=== PATIENT | female | born 1950 | race Caucasian/White ===

== ENCOUNTER 2022-04-28 13:42 | Outpatient (REF) | payer OTHER, SELFPAY ==
[2022-04-28 14:28] LABS: Basophils Absolute Auto 0.07 K/uL (0.00-0.30); Basophils Percent Auto 0.8 % (0.0-3.0); Eosinophils Absolute Auto 0.16 K/uL (0.00-0.50); Eosinophils Percent Auto 1.9 % (0.0-7.0); Hematocrit 41.7 % (33.0-51.0); Hemoglobin* 13.8 gm/dL (12.0-16.0); Immature Granulocytes Abs Auto 0.03 K/uL (0.00-0.30); Lymphocytes Percent Auto 18.1 % (20-44); Mean Corpuscular HGB Conc 33 gm/dL (32-36); Mean Corpuscular Hemoglobin 36 pg (26-34); Mean Corpuscular Volume 108 fL (80-100); Monocytes Percent Auto 8.5 % (0.0-11.0); Neutrophils Absolute Auto 5.94 K/uL (1.7-7.0); Neutrophils Percent Auto 70.3 % (42.0-72.0); Platelet Count* 449 K/uL (140-440); RDW Coefficient of Variation % 14.4 % (11.5-15.5); Red Blood Count 3.87 m/uL (4.00-5.20); White Blood Count* 8.45 K/uL (4.50-11.00)
[2022-04-29 05:42] LABS: Slide Review Reflex No
== END 2022-04-28 13:43 | disposition home or self-care (01) ==
LOC: NPINS 13:42
PROVIDERS: PCP Family Medicine
DX: D47.3 Essential (hemorrhagic) thrombocythemia (principal)
CPT/HCPCS: 85025

== ENCOUNTER 2022-06-09 10:23 | Outpatient (CLI) | payer OTHER, SELFPAY ==
[2022-06-09 14:49] LABS: Albumin* 4.8 g/dL (3.3-5.0); Chloride* 96 mmol/L (96-114); Sodium* 131 mmol/L (135-149)
[2022-06-09 14:50] LABS: Potassium* 4.6 mmol/L (3.6-5.1)
[2022-06-09 14:51] LABS: Cholesterol* 168 mg/dL (90-199)
[2022-06-09 14:52] LABS: Alanine Aminotransferase* 40 U/L (4-35); Alkaline Phosphatase* 80 U/L (40-150); Aspartate Amino Transferase* 50 U/L (12-35); Bilirubin Total* 0.6 mg/dL (0.1-1.5); Blood Urea Nitrogen* 18 mg/dL (7-30); Calcium* 9.4 mg/dL (8.4-10.6); Carbon Dioxide* 26 mmol/L (20-32); Creatinine* 0.6 mg/dL (0.5-1.5); Estimated Glomerular Filt Rate 95 ml/min; Glucose* 92 mg/dL (60-115); Total Protein* 7.3 g/dL (6.0-8.3); Triglycerides* 63 mg/dL (40-149)
[2022-06-09 14:53] LABS: HDL Cholesterol* 88 mg/dL (>=50); LDL Cholesterol Calculated 67 mg/dL (<100)
== END 2022-06-09 10:24 | disposition home or self-care (01) ==
PROVIDERS: PCP Family Medicine; Visit Provider Family Medicine
DX: Z00.00 Encounter for general adult medical examination without abnormal findings (principal); I10 Essential (primary) hypertension; E78.00 Pure hypercholesterolemia, unspecified
CPT/HCPCS: 80053; 80061

== ENCOUNTER 2022-06-25 10:36 | Outpatient (CLI) | payer OTHER, SELFPAY ==
--- NOTE | 2022-06-25 10:45 | CRLHL7_ITS ---
For Patients: As a result of the Cures Act, medical imaging exams and procedure reports are released immediately into your electronic medical record. You may view this report before your referring provider. If you have questions, please contact your health care provider. DIGITAL DIAGNOSTIC BILATERAL MAMMOGRAM USING TOMOSYNTHESIS AND COMPUTER-AIDED DETECTION CLINICAL HISTORY: LEFT breast density. COMPARISON: 05/29/2021, 09/06/2017, 07/28/2016. TECHNIQUE: Digital BILATERAL mammogram in four projections. Tomosynthesis and CAD utilized. BREAST COMPOSITION: The breasts are heterogeneously dense, which may obscure small masses. FINDINGS: Stable BILATERAL breast parenchyma with benign calcifications and stable benign nodular density LEFT breast. No architectural distortion or suspicious findings. No adenopathy. IMPRESSION: Normal BILATERAL mammograms unchanged from prior exams. No evidence of malignancy. RECOMMENDATIONS: Annual BILATERAL screening mammography. BI-RADS Category 2: Benign Results and recommendations discussed with the patient. A lay language report of this examination will be provided to the patient. Dictated by Emir Alvarez MD @ 06/25/2022 12:27:03 PM jj/Dictated by: Emir Alvarez MD @ 06/25/2022 12:27:00 PM (Electronically Signed)
--- NOTE | 2022-06-25 14:30 | CRLHL7_ITS ---
For Patients: As a result of the Century Cures Act, medical imaging exams and procedure reports are released immediately into your electronic medical record. You may view this report before your referring provider. If you have questions, please contact your health care provider. DXA BONE MINERAL DENSITY STUDY Reason for exam: Abnormal DEXA 2020 Current height (in): 66.0 Weight (lb): 112.0 Menopause age: 53 Ethnicity: White 1. Have you had a previous hip or vertebral fracture? No. 2. Have you had any fractures during your adult life which did not result from significant trauma (e.g., auto accident)? No. 3. Did either of your parents have a hip fracture? No. 4. Do you smoke? No. 5. Have you ever taken Glucocorticoids? No. 6. Do you have rheumatoid arthritis? No. 7. Do you have secondary osteoporosis? No. 8. Do you drink 3 or more alcoholic drinks per day? No. 9. Are you being treated for osteoporosis? No. 10. Have you ever taken any of the following medications: Actonel, Evista, Fosamax, Miacalcin, Reclast, Boniva, Forteo, HRT (i.e. estrogen/hormone therapy), Protelos, Prolia, Vitamin D, Calcium, other ??? please specify. ANSWER: Yes, calcium. 11. Do you have any of the following medical conditions: Anorexia or bulimia, asthma or emphysema, end stage renal disease, hyperparathyroidism, any seizure disorders, cancer, inflammatory bowel diseases, hysterectomy, other ??? please specify. ANSWER: Yes, hysterectomy. 12. What was your maximum height (inches)? 66 13. Do you perform weight bearing exercise regularly? Yes. 14. Do you regularly consume dairy products? Yes. 15. Do you drink caffeinated beverages? Yes. 16. At what age did your period start? 15 17. Are you premenopausal? No. 18. How many full term pregnancies have you had? 1 19. Have you ever missed your period for more than 6 months in a row (not including or menopause)? No. TECHNIQUE: Bone mineral density study was performed using the [employer]. FINDINGS: The results of the study expressed as bone mineral density (BMD) are as follows: Lumbar spine L1 to L4: BMD: 0.734 g/cm2. T-score: -2.8. Z-score: -0.5. Neck Left: BMD: 0.563 g/cm2. T-score: -2.6. Z-score: -0.6. Right: BMD: 0.590 g/cm2. T-score: -2.3. Z-score: -0.3. Total Left: BMD: 0.543 g/cm2. T-score: -3.3. Z-score: -1.6. Right: BMD: 0.588 g/cm2. T-score: -2.9. Z-score: -1.2. IMPRESSION: Osteoporosis. *Comparison exams done prior to 12/2019 were performed on different unit, [email or web address]. COMPARISON: Compared with scan of 05/29/2021, the bone mineral density has decreased by 0.7 percent at the hip. Emir Alvarez M.D. Diagnostic Radiologist [email or web address] DSM/pura PT/Dictated by: Emir Alvarez MD @ 06/26/2022 12:23:00 PM (Electronically Signed)
== END 2022-06-25 10:37 | disposition home or self-care (01) ==
LOC: MAMMO 10:38
PROVIDERS: PCP Family Medicine; Visit Provider Family Medicine
DX: N63.20 Unspecified lump in the left breast, unspecified quadrant (principal); R92.8 Other abnormal and inconclusive findings on diagnostic imaging of breast; M85.80 Other specified disorders of bone density and structure, unspecified site; M81.0 Age-related osteoporosis without current pathological fracture
CPT/HCPCS: 77066; 77080; G0279

== ENCOUNTER 2022-08-18 22:04 | Outpatient (REF) | payer OTHER, SELFPAY ==
[2022-08-19 03:59] LABS: Basophils Absolute Auto 0.12 K/uL (0.00-0.30); Basophils Percent Auto 1.2 % (0.0-3.0); Eosinophils Absolute Auto 0.24 K/uL (0.00-0.50); Eosinophils Percent Auto 2.4 % (0.0-7.0); Hematocrit 44.1 % (33.0-51.0); Hemoglobin* 14.4 gm/dL (12.0-16.0); Immature Granulocytes Abs Auto 0.09 K/uL (0.00-0.30); Immature Granulocytes Pct Auto 0.9 %; Mean Corpuscular HGB Conc 33 gm/dL (32-36); Mean Corpuscular Hemoglobin 35 pg (26-34); Mean Corpuscular Volume 108 fL (80-100); Neutrophils Percent Auto 70.5 % (42.0-72.0); Platelet Count* 507 K/uL (140-440); RDW Coefficient of Variation % 14.2 % (11.5-15.5); Red Blood Count 4.07 m/uL (4.00-5.20); White Blood Count* 9.94 K/uL (4.50-11.00)
[2022-08-19 04:06] LABS: Slide Review Reflex No
== END 2022-08-18 22:05 | disposition home or self-care (01) ==
LOC: LAB 22:04
PROVIDERS: PCP Family Medicine
DX: D47.3 Essential (hemorrhagic) thrombocythemia (principal)
CPT/HCPCS: 36415; 85025

== ENCOUNTER 2022-11-10 13:49 | Outpatient (REF) | payer OTHER, SELFPAY ==
[2022-11-10 14:17] LABS: Basophils Absolute Auto 0.11 K/uL (0.00-0.30); Basophils Percent Auto 1.1 % (0.0-3.0); Eosinophils Absolute Auto 0.19 K/uL (0.00-0.50); Hematocrit 44.6 % (33.0-51.0); Hemoglobin* 14.7 gm/dL (12.0-16.0); Immature Granulocytes Abs Auto 0.05 K/uL (0.00-0.30); Immature Granulocytes Pct Auto 0.5 %; Lymphocytes Percent Auto 13.9 % (20-44); Mean Corpuscular HGB Conc 33 gm/dL (32-36); Mean Corpuscular Hemoglobin 35 pg (26-34); Mean Corpuscular Volume 105 fL (80-100); Monocytes Percent Auto 7.9 % (0.0-11.0); Neutrophils Percent Auto 74.6 % (42.0-72.0); Platelet Count* 442 K/uL (140-440); RDW Coefficient of Variation % 14.5 % (11.5-15.5); Red Blood Count 4.24 m/uL (4.00-5.20); White Blood Count* 9.59 K/uL (4.50-11.00)
[2022-11-10 14:27] LABS: Slide Review Reflex No
== END 2022-11-10 13:50 | disposition home or self-care (01) ==
LOC: NPINS 13:49
PROVIDERS: Internal Medicine; PCP Family Medicine
DX: D47.3 Essential (hemorrhagic) thrombocythemia (principal)
CPT/HCPCS: 85025

== ENCOUNTER 2023-05-17 13:29 | Outpatient (CLI) | payer OTHER, SELFPAY | END 2023-05-17 13:30 | disposition home or self-care (01) | PROVIDERS: PCP Family Medicine; Visit Provider Family Medicine | DX: E78.00 Pure hypercholesterolemia, unspecified (principal); G62.9 Polyneuropathy, unspecified; I10 Essential (primary) hypertension | CPT/HCPCS: 80048; 84443 ==

== ENCOUNTER 2023-05-24 12:34 | Outpatient (CLI) | payer OTHER, SELFPAY ==
--- NOTE | 2023-05-24 13:00 | CRLHL7_ITS ---
For Patients: As a result of the Cures Act, medical imaging exams and procedure reports are released immediately into your electronic medical record. You may view this report before your referring provider. If you have questions, please contact your health care provider. INDICATION: essential hypertension TECHNIQUE: Grayscale, color Doppler and power Doppler ultrasound of the renal arteries performed. COMPARISON: None available FINDINGS: BILATERAL RENAL ARTERY DUPLEX ULTRASOUND ABDOMINAL AORTA: Peak systolic velocity = 57 cm/s. No aortic aneurysm. RIGHT KIDNEY: 10.5 cm in length. There is no hydronephrosis. Peak systolic velocity = 103 cm/second Renal artery to aortic peak systolic velocity ratio = 1.8 Resistive indices: 0.6-0.7 Renal vein = patent LEFT KIDNEY: 12.2 cm in length. There is no hydronephrosis. Simple left renal cyst measures 13 x 10 x 12 millimeters. Additional cyst is present measuring 3.5 x 3.4 x 4.0 cm. Peak systolic velocity = 95 cm/second Renal artery to aortic peak systolic velocity ratio = 1.7 Resistive indices: 0.6 Renal vein = patent IMPRESSION: No evidence of significant renal artery stenosis. Dictated by Emir Alvarez MD @ 05/24/2023 3:02:15 PM (Electronically Signed)
== END 2023-05-24 12:35 | disposition home or self-care (01) ==
PROVIDERS: PCP Family Medicine; Visit Provider Family Medicine
DX: I10 Essential (primary) hypertension (principal); D75.839 Thrombocytosis, unspecified; Z86.2 Personal history of diseases of the blood and blood-forming organs and certain disorders involving the immune mechanism
CPT/HCPCS: 76775; 93975

== ENCOUNTER 2023-06-18 12:30 | Outpatient (CLI) | payer OTHER, SELFPAY | END 2023-06-18 12:31 | disposition home or self-care (01) | LOC: RAD 12:34 | PROVIDERS: PCP Family Medicine; Visit Provider Family Medicine | DX: I10 Essential (primary) hypertension (principal); I51.7 Cardiomegaly; I35.1 Nonrheumatic aortic (valve) insufficiency; I34.0 Nonrheumatic mitral (valve) insufficiency | CPT/HCPCS: 93306 ==

== ENCOUNTER 2023-06-24 11:19 | Outpatient (CLI) | payer OTHER, SELFPAY ==
[2023-06-24 23:24] LABS: Cholesterol* 155 mg/dL (90-199); HDL Cholesterol* 80 mg/dL (>=50); LDL Cholesterol Calculated 54 mg/dL (<100); Triglycerides* 106 mg/dL (40-149)
== END 2023-06-24 11:20 | disposition home or self-care (01) ==
PROVIDERS: PCP Family Medicine; Visit Provider Family Medicine
DX: E78.00 Pure hypercholesterolemia, unspecified (principal); I10 Essential (primary) hypertension
CPT/HCPCS: 80048; 80061

== ENCOUNTER 2023-07-06 11:20 | Outpatient (CLI) | payer OTHER, SELFPAY | END 2023-07-06 11:21 | disposition home or self-care (01) | LOC: NFLDREF 07-08 06:27 | PROVIDERS: PCP Family Medicine; Referring Provider Family Medicine; Visit Provider Family Medicine | DX: E87.1 Hypo-osmolality and hyponatremia (principal) | CPT/HCPCS: 80048 ==

== ENCOUNTER 2023-08-10 14:39 | Outpatient (RCR) | payer OTHER, SELFPAY ==
[2023-04-29 14:25] LABS: Basophils Percent Auto 0.9 % (0.0-3.0); Eosinophils Absolute Auto 0.19 K/uL (0.00-0.50); Eosinophils Percent Auto 1.8 % (0.0-7.0); Hematocrit 41.1 % (33.0-51.0); Hemoglobin* 13.8 gm/dL (12.0-16.0); Immature Granulocytes Abs Auto 0.05 K/uL (0.00-0.30); Immature Granulocytes Pct Auto 0.5 %; Lymphocytes Percent Auto 14.1 % (20-44); Mean Corpuscular HGB Conc 34 gm/dL (32-36); Mean Corpuscular Hemoglobin 36 pg (26-34); Mean Corpuscular Volume 106 fL (80-100); Monocytes Percent Auto 8.3 % (0.0-11.0); Neutrophils Percent Auto 74.4 % (42.0-72.0); Platelet Count* 472 K/uL (140-440); RDW Coefficient of Variation % 14.7 % (11.5-15.5); Red Blood Count 3.87 m/uL (4.00-5.20)
[2023-04-29 14:29] LABS: Slide Review Reflex No
[2023-08-10 15:27] LABS: Basophils Percent Auto 1.9 % (0.0-3.0); Eosinophils Percent Auto 1.8 % (0.0-7.0); Hematocrit 44.9 % (33.0-51.0); Hemoglobin* 14.8 gm/dL (12.0-16.0); Immature Granulocytes Pct Auto 0.8 %; Mean Corpuscular HGB Conc 33 gm/dL (32-36); Mean Corpuscular Hemoglobin 36 pg (26-34); Mean Corpuscular Volume 110 fL (80-100); Monocytes Percent Auto 7.6 % (0.0-11.0); Neutrophils Percent Auto 74.9 % (42.0-72.0); Platelet Count* 517 K/uL (140-440); RDW Coefficient of Variation % 14.3 % (11.5-15.5); White Blood Count* 11.99 K/uL (4.50-11.00)
[2023-08-10 15:28] LABS: Albumin* 4.6 g/dL (3.3-5.0); Chloride* 97 mmol/L (96-114); Potassium* 5.2 mmol/L (3.6-5.1); Sodium* 131 mmol/L (135-149)
[2023-08-10 15:30] LABS: Creatinine* 0.5 mg/dL (0.5-1.5); Estimated Glomerular Filt Rate 98 ml/min
[2023-08-10 15:31] LABS: Alanine Aminotransferase* 53 U/L (4-35); Alkaline Phosphatase* 69 U/L (40-150); Anion Gap 9 mEq/L (7-15); Aspartate Amino Transferase* 56 U/L (12-35); Bilirubin Total* 0.4 mg/dL (0.1-1.5); Blood Urea Nitrogen* 20 mg/dL (7-30); Carbon Dioxide* 25 mmol/L (20-32); Glucose* 112 mg/dL (60-115)
[2023-08-10 15:32] LABS: Calcium* 9.3 mg/dL (8.4-10.6)
[2023-08-10 15:47] LABS: Slide Review Reflex No
== END 2024-07-28 14:35 | disposition home or self-care (01) ==
LOC: LAB 14:39
PROVIDERS: PCP Family Medicine; Visit Provider Internal Medicine
DX: D47.3 Essential (hemorrhagic) thrombocythemia (principal)
CPT/HCPCS: 36415; 80053; 85025

== ENCOUNTER 2023-08-20 12:20 | Outpatient (CLI) | payer OTHER, MEDICARE, SELFPAY ==
--- NOTE | 2023-08-20 13:00 | CRLHL7_ITS ---
For Patients: As a result of the Century Cures Act, medical imaging exams and procedure reports are released immediately into your electronic medical record. You may view this report before your referring provider. If you have questions, please contact your health care provider. BILATERAL SCREENING MAMMOGRAM WITH COMPUTER-AIDED DETECTION AND TOMOSYNTHESIS TECHNIQUE: CC and MLO views were obtained. These mammographic images have been obtained using full-field digital technique. These mammographic images were interpreted with the benefit of computer-aided detection. Breast Tomosynthesis was used in this interpretation. COMPARISON FILM: 06/25/22, 05/29/21, 09/06/17. FINDINGS: The breasts are heterogeneously dense, which may obscure small masses. IMPRESSION: There is no radiographic evidence for malignancy. ASSESSMENT: BI-RADS Category 1: Negative RECOMMENDATION: Routine screening mammogram in 1 year. A lay language report of this examination will be provided to the patient. Emir Alvarez M.D. Diagnostic Radiologist [email or web address] SP/Dictated by: Emir Alvarez MD @ 08/23/2023 10:12:00 AM (Electronically Signed)
== END 2023-08-20 12:21 | disposition home or self-care (01) ==
LOC: MAMMO 12:25
PROVIDERS: PCP Family Medicine; Visit Provider Family Medicine
DX: Z12.31 Encounter for screening mammogram for malignant neoplasm of breast (principal); R92.2 Inconclusive mammogram
CPT/HCPCS: 77063; 77067

== ENCOUNTER 2023-09-28 10:28 | Outpatient (CLI) | payer OTHER, MEDICARE, SELFPAY | END 2023-09-28 10:29 | disposition home or self-care (01) | LOC: NFLDREF 10-12 10:24 | PROVIDERS: PCP Family Medicine; Referring Provider Family Medicine; Visit Provider Family Medicine | DX: E78.00 Pure hypercholesterolemia, unspecified (principal); I10 Essential (primary) hypertension | CPT/HCPCS: 80048 ==

== ENCOUNTER 2024-03-09 13:54 | Outpatient (REF) | payer OTHER, SELFPAY ==
[2024-03-09 15:34] LABS: Basophils Percent Auto 1.1 % (0.0-3.0); Eosinophils Percent Auto 1.6 % (0.0-7.0); Hematocrit 43.7 % (33.0-51.0); Hemoglobin* 13.5 gm/dL (12.0-16.0); Immature Granulocytes Pct Auto 0.5 %; Lymphocytes Percent Auto 12.2 % (20-44); Mean Corpuscular HGB Conc 31 gm/dL (32-36); Mean Corpuscular Hemoglobin 30 pg (26-34); Mean Corpuscular Volume 97 fL (80-100); Monocytes Percent Auto 6.1 % (0.0-11.0); Neutrophils Percent Auto 78.5 % (42.0-72.0); Platelet Count* 429 K/uL (140-440); RDW Coefficient of Variation % 14.5 % (11.5-15.5); Red Blood Count 4.49 m/uL (4.00-5.20); White Blood Count* 14.23 K/uL (4.50-11.00)
[2024-03-09 15:46] LABS: Slide Review Reflex No
== END 2024-03-09 13:55 | disposition home or self-care (01) ==
LOC: NPINS 13:54
PROVIDERS: PCP Family Medicine; Visit Provider Internal Medicine
DX: D47.3 Essential (hemorrhagic) thrombocythemia (principal)
CPT/HCPCS: 85025

== ENCOUNTER 2024-05-01 17:03 | Outpatient (CLI) | payer OTHER, SELFPAY | END 2024-05-01 17:04 | disposition home or self-care (01) | LOC: LKVREF 17:04 | PROVIDERS: PCP Family Medicine; Visit Provider Family Medicine | DX: E87.1 Hypo-osmolality and hyponatremia (principal); I10 Essential (primary) hypertension | CPT/HCPCS: 80048 ==

== ENCOUNTER 2024-05-25 11:12 | Outpatient (CLI) | payer OTHER, SELFPAY | END 2024-05-25 11:13 | disposition home or self-care (01) | PROVIDERS: PCP Family Medicine; Visit Provider Family Medicine | DX: E78.00 Pure hypercholesterolemia, unspecified (principal); I10 Essential (primary) hypertension | CPT/HCPCS: 80053; 80061 ==

== ENCOUNTER 2024-05-29 13:30 | Outpatient (CLI) | payer OTHER, SELFPAY | END 2024-05-29 13:31 | disposition home or self-care (01) | LOC: NFLDREF 06-01 09:04 | PROVIDERS: PCP Family Medicine; Referring Provider Family Medicine; Visit Provider Family Medicine | DX: Z00.00 Encounter for general adult medical examination without abnormal findings (principal); R35.0 Frequency of micturition; E11.9 Type 2 diabetes mellitus without complications; E87.1 Hypo-osmolality and hyponatremia; I10 Essential (primary) hypertension | CPT/HCPCS: 82043; 82570 ==

== ENCOUNTER 2024-07-27 14:59 | Outpatient (REF) | payer OTHER, SELFPAY ==
[2024-07-27 17:11] LABS: Eosinophils Percent Auto 1.6 % (0.0-7.0); Hematocrit 44.4 % (33.0-51.0); Hemoglobin* 13.7 gm/dL (12.0-16.0); Immature Granulocytes Pct Auto 0.5 %; Lymphocytes Percent Auto 10.4 % (20-44); Mean Corpuscular HGB Conc 31 gm/dL (32-36); Mean Corpuscular Hemoglobin 29 pg (26-34); Mean Corpuscular Volume 93 fL (80-100); Monocytes Percent Auto 5.3 % (0.0-11.0); Neutrophils Percent Auto 81.2 % (42.0-72.0); Platelet Count* 386 K/uL (140-440); RDW Coefficient of Variation % 16.8 % (11.5-15.5); Red Blood Count 4.77 m/uL (4.00-5.20); White Blood Count* 13.64 K/uL (4.50-11.00)
[2024-07-27 17:16] LABS: Slide Review Reflex No
== END 2024-07-27 15:00 | disposition home or self-care (01) ==
LOC: NPINS 14:59
PROVIDERS: PCP Family Medicine; Visit Provider Internal Medicine
DX: D69.3 Immune thrombocytopenic purpura (principal)
CPT/HCPCS: 85025

== ENCOUNTER 2024-08-23 13:38 | Outpatient (CLI) | payer OTHER, SELFPAY ==
--- NOTE | 2024-08-23 14:00 | CRLHL7_ITS ---
For Patients: As a result of the Cures Act, medical imaging exams and procedure reports are released immediately into your electronic medical record. You may view this report before your referring provider. If you have questions, please contact your health care provider. BILATERAL SCREENING MAMMOGRAM WITH COMPUTER-AIDED DETECTION AND TOMOSYNTHESIS TECHNIQUE: CC and MLO views were obtained. These mammographic images have been obtained using full-field digital technique. These mammographic images were interpreted with the benefit of computer-aided detection. Breast Tomosynthesis was used in this interpretation. COMPARISON FILM: 08/20/23, 06/25/22, 06/04/21. FINDINGS: The breasts are extremely dense, which lowers the sensitivity of mammography IMPRESSION: There is no radiographic evidence for malignancy. ASSESSMENT: BI-RADS Category 1: Negative RECOMMENDATION: Routine screening mammogram in 1 year. A lay language report of this examination will be provided to the patient. Emir Alvarez M.D. Diagnostic Radiologist [email or web address] ARIANNA/[email or web address] / bM/Dictated by: Emir Alvarez MD @ 08/24/2024 10:37:00 AM (Electronically Signed)
== END 2024-08-23 13:39 | disposition home or self-care (01) ==
LOC: MAMMO 13:39
PROVIDERS: PCP Family Medicine; Visit Provider Family Medicine
DX: Z12.31 Encounter for screening mammogram for malignant neoplasm of breast (principal); R92.333 Mammographic heterogeneous density, bilateral breasts
CPT/HCPCS: 77063; 77067

== ENCOUNTER 2024-08-29 09:58 | Outpatient (CLI) | payer OTHER, SELFPAY ==
[2024-08-29 13:24] LABS: Basophils Percent Auto 0.8 % (0.0-3.0); Eosinophils Percent Auto 1.6 % (0.0-7.0); Hematocrit 43.7 % (33.0-51.0); Hemoglobin* 13.8 gm/dL (12.0-16.0); Immature Granulocytes Pct Auto 0.5 %; Lymphocytes Percent Auto 11.2 % (20-44); Mean Corpuscular HGB Conc 32 gm/dL (32-36); Mean Corpuscular Hemoglobin 31 pg (26-34); Mean Corpuscular Volume 97 fL (80-100); Monocytes Percent Auto 5.3 % (0.0-11.0); Neutrophils Percent Auto 80.6 % (42.0-72.0); Platelet Count* 336 K/uL (140-440); RDW Coefficient of Variation % 18.8 % (11.5-15.5); Red Blood Count 4.53 m/uL (4.00-5.20); White Blood Count* 12.65 K/uL (4.50-11.00)
[2024-08-29 13:27] LABS: Slide Review Reflex No
== END 2024-08-29 09:59 | disposition home or self-care (01) ==
LOC: NPINS 10:00
PROVIDERS: PCP Family Medicine; Visit Provider Internal Medicine
DX: D47.3 Essential (hemorrhagic) thrombocythemia (principal)
CPT/HCPCS: 85025

== ENCOUNTER 2024-09-07 13:05 | Outpatient (CLI) | payer OTHER, SELFPAY | END 2024-09-07 13:06 | disposition home or self-care (01) | LOC: RAD 13:05 | PROVIDERS: PCP Family Medicine; Visit Provider Family Medicine | DX: M81.0 Age-related osteoporosis without current pathological fracture (principal) | CPT/HCPCS: 77080 ==

== ENCOUNTER 2024-11-23 09:17 | Outpatient (CLI) | payer OTHER, SELFPAY ==
[2024-11-23 13:47] LABS: Basophils Percent Auto 0.9 % (0.0-3.0); Eosinophils Percent Auto 1.5 % (0.0-7.0); Hematocrit 43.2 % (33.0-51.0); Immature Granulocytes Pct Auto 0.5 %; Lymphocytes Percent Auto 12.6 % (20-44); Mean Corpuscular HGB Conc 32 gm/dL (32-36); Mean Corpuscular Hemoglobin 34 pg (26-34); Mean Corpuscular Volume 106 fL (80-100); Monocytes Percent Auto 4.5 % (0.0-11.0); Platelet Count* 361 K/uL (140-440); RDW Coefficient of Variation % 16.8 % (11.5-15.5); Red Blood Count 4.09 m/uL (4.00-5.20); White Blood Count* 11.05 K/uL (4.50-11.00)
[2024-11-23 13:52] LABS: Slide Review Reflex No
== END 2024-11-23 09:18 | disposition home or self-care (01) ==
LOC: NPINS 09:17
PROVIDERS: PCP Family Medicine; Visit Provider Internal Medicine
DX: D45 Polycythemia vera (principal)
CPT/HCPCS: 85025

== ENCOUNTER 2024-11-23 09:18 | Outpatient (CLI) | payer OTHER, SELFPAY ==
[2024-11-23 13:49] LABS: Chloride* 92 mmol/L (96-114); Potassium* 4.7 mmol/L (3.6-5.1); Sodium* 128 mmol/L (135-149)
[2024-11-23 13:52] LABS: Blood Urea Nitrogen* 20 mg/dL (7-30); Creatinine* 0.5 mg/dL (0.5-1.5); Estimated Glomerular Filt Rate 98 ml/min
[2024-11-23 13:53] LABS: Calcium* 9.5 mg/dL (8.4-10.6); Carbon Dioxide* 22 mmol/L (20-32); Glucose* 85 mg/dL (60-115)
[2024-11-23 14:02] LABS: Anion Gap 14 mEq/L (7-15)
== END 2024-11-23 09:19 | disposition home or self-care (01) ==
LOC: NPINS 09:18
PROVIDERS: PCP Family Medicine; Visit Provider Internal Medicine Nephrology
DX: E87.1 Hypo-osmolality and hyponatremia (principal)
CPT/HCPCS: 80048

== ENCOUNTER → 2024-12-05 10:51 | Outpatient (RCR) | payer OTHER, SELFPAY ==
[2023-12-01 11:21] LABS: Basophils Percent Auto 0.9 % (0.0-3.0); Eosinophils Percent Auto 1.9 % (0.0-7.0); Hematocrit 45.2 % (33.0-51.0); Hemoglobin* 14.8 gm/dL (12.0-16.0); Immature Granulocytes Pct Auto 0.5 %; Lymphocytes Percent Auto 11.8 % (20-44); Mean Corpuscular HGB Conc 33 gm/dL (32-36); Mean Corpuscular Hemoglobin 35 pg (26-34); Mean Corpuscular Volume 107 fL (80-100); Monocytes Percent Auto 6.4 % (0.0-11.0); Neutrophils Percent Auto 78.5 % (42.0-72.0); Platelet Count* 478 K/uL (140-440); RDW Coefficient of Variation % 13.6 % (11.5-15.5); Red Blood Count 4.23 m/uL (4.00-5.20); White Blood Count* 13.38 K/uL (4.50-11.00)
[2023-12-01 11:24] LABS: Slide Review Reflex No
[2023-12-01 11:44] LABS: Albumin* 4.8 g/dL (3.3-5.0); Chloride* 94 mmol/L (96-114); Potassium* 4.2 mmol/L (3.6-5.1); Sodium* 130 mmol/L (135-149)
[2023-12-01 11:46] LABS: Bilirubin Total* 0.4 mg/dL (0.1-1.5); Creatinine* 0.5 mg/dL (0.5-1.5); Estimated Glomerular Filt Rate 98 ml/min
[2023-12-01 11:47] LABS: Alanine Aminotransferase* 42 U/L (4-35); Alkaline Phosphatase* 84 U/L (40-150); Anion Gap 8 mEq/L (7-15); Aspartate Amino Transferase* 52 U/L (12-35); Blood Urea Nitrogen* 21 mg/dL (7-30); Calcium* 9.5 mg/dL (8.4-10.6); Carbon Dioxide* 28 mmol/L (20-32); Glucose* 87 mg/dL (60-115); Lactate Dehydrogenase* 333 U/L (120-246); Total Protein* 7.8 g/dL (6.0-8.3)
[2023-12-01 12:12] LABS: Immature Reticulocyte Fraction 20.3 % (3.0-15.9); Reticulocyte Percent 2.3 % (0.5-2.0)
[2023-12-28 23:31] LABS: Lactate Dehydrogenase* 342 U/L (120-246)
[2023-12-28 23:45] LABS: Basophils Percent Auto 0.8 % (0.0-3.0); Eosinophils Percent Auto 1.9 % (0.0-7.0); Hematocrit 46.7 % (33.0-51.0); Immature Granulocytes Pct Auto 0.9 %; Lymphocytes Percent Auto 9.9 % (20-44); Mean Corpuscular HGB Conc 32 gm/dL (32-36); Mean Corpuscular Hemoglobin 34 pg (26-34); Mean Corpuscular Volume 105 fL (80-100); Neutrophils Percent Auto 80.5 % (42.0-72.0); Platelet Count* 534 K/uL (140-440); RDW Coefficient of Variation % 13.7 % (11.5-15.5); Red Blood Count 4.44 m/uL (4.00-5.20); White Blood Count* 14.92 K/uL (4.50-11.00)
[2023-12-29 00:01] LABS: Slide Review Reflex No
[2024-01-25 13:49] LABS: Basophils Percent Auto 1.3 % (0.0-3.0); Eosinophils Percent Auto 1.6 % (0.0-7.0); Hematocrit 43.2 % (33.0-51.0); Hemoglobin* 13.8 gm/dL (12.0-16.0); Immature Granulocytes Pct Auto 0.5 %; Lymphocytes Percent Auto 11.8 % (20-44); Mean Corpuscular HGB Conc 32 gm/dL (32-36); Mean Corpuscular Hemoglobin 33 pg (26-34); Mean Corpuscular Volume 102 fL (80-100); Monocytes Percent Auto 6.5 % (0.0-11.0); Neutrophils Percent Auto 78.3 % (42.0-72.0); Platelet Count* 480 K/uL (140-440); RDW Coefficient of Variation % 13.8 % (11.5-15.5); Red Blood Count 4.24 m/uL (4.00-5.20); White Blood Count* 15.16 K/uL (4.50-11.00)
[2024-01-25 14:53] LABS: Slide Review Reflex Yes
[2024-01-25 14:57] LABS: Slide Review Acceptable Review (Acceptable)
== END | disposition home or self-care (01) ==
LOC: LAB 12-01 10:32
PROVIDERS: PCP Family Medicine; Visit Provider Internal Medicine
DX: D47.3 Essential (hemorrhagic) thrombocythemia (principal)
CPT/HCPCS: 36415; 80053; 83615; 85025; 85045

== ENCOUNTER 2024-12-07 09:46 | Outpatient (CLI) | payer OTHER, SELFPAY ==
[2024-12-07 14:12] LABS: Appearance Urine Clear (Clear); Bilirubin Urine Negative (Negative); Blood Urine Negative (Negative); Color Urine Yellow (Yellow); Glucose Urine Negative (Negative); Ketones Urine Negative (Negative); Leukocyte Esterase Urine Negative (Negative); Nitrite Urine Negative (Negative); Protein Urine Negative (Negative); Urobilinogen Urine 0.2 (0.2-1.0)
[2024-12-07 14:22] LABS: RBC Urine 0-2 (0-2); WBC Urine 0-2 (0-5)
== END 2024-12-07 09:47 | disposition home or self-care (01) ==
LOC: NPINS 09:47
PROVIDERS: PCP Family Medicine; Visit Provider Internal Medicine Nephrology
DX: E87.1 Hypo-osmolality and hyponatremia (principal); I11.0 Hypertensive heart disease with heart failure; I50.32 Chronic diastolic (congestive) heart failure; D47.3 Essential (hemorrhagic) thrombocythemia
CPT/HCPCS: 80048; 81001

== ENCOUNTER 2025-01-24 10:19 | Outpatient (CLI) | payer OTHER, SELFPAY ==
--- NOTE | 2025-01-24 10:45 | CRLHL7_ITS ---
For Patients: As a result of the Century Cures Act, medical imaging exams and procedure reports are released immediately into your electronic medical record. You may view this report before your referring provider. If you have questions, please contact your health care provider. DIGITAL DIAGNOSTIC BILATERAL MAMMOGRAM USING TOMOSYNTHESIS AND COMPUTER-AIDED DETECTION RIGHT BREAST ULTRASOUND CLINICAL HISTORY: Inconclusive finding on RIGHT breast during PET scan. COMPARISON: 08/23/2024, 08/20/2023, 06/25/2022 mammograms, outside CT PET 12/26/2024 . TECHNIQUE: Digital BILATERAL mammogram in four projections with computer-aided detection. Tomosynthesis was used in this interpretation. Real-time ultrasound imaging of RIGHT breast with imaging documentation. Scanning was performed by both the technologist and the radiologist. BREAST COMPOSITION: The breasts are extremely dense, which lowers the sensitivity of mammography. FINDINGS: 3D CC/MLO BILATERAL mammogram images submitted. Breast parenchyma is extremely dense. Benign calcifications are present bilaterally. No architectural distortion. No suspicious mass. Patient has had prior excisional biopsy in the remote past. No adenopathy. Targeted RIGHT breast ultrasound performed. At 7 o`clock 3 cm from the nipple, there is a solid heterogeneous mass with increased through-transmission measuring 1.5 cm. IMPRESSION: Indeterminate solid mass RIGHT breast 7 o`clock 3 cm from the nipple measuring approximally 1.5 [address]-PET. RECOMMENDATIONS: Ultrasound-guided core needle biopsy. A lay language report of this examination will be provided to the patient. BI-RADS Category 4: Suspicious Dictated by Emir Alvarez MD @ 01/24/2025 11:52:34 AM jj/Dictated by: Emir Alvarez MD @ 01/24/2025 11:52:00 AM (Electronically Signed)
--- NOTE | 2025-01-24 11:15 | CRLHL7_ITS ---
For Patients: As a result of the Cures Act, medical imaging exams and procedure reports are released immediately into your electronic medical record. You may view this report before your referring provider. If you have questions, please contact your health care provider. SEE DIGITAL DIAGNOSTIC BILATERAL MAMMOGRAM PERFORMED SAME DAY CRL:jael elder/Dictated by: Emir Alvarez MD @ 01/24/2025 11:52:00 AM (Electronically Signed)
== END 2025-01-24 10:20 | disposition home or self-care (01) ==
LOC: MAMMO 10:20
PROVIDERS: PCP Family Medicine; Visit Provider Family Medicine
DX: N63.10 Unspecified lump in the right breast, unspecified quadrant (principal); R92.343 Mammographic extreme density, bilateral breasts; R92.8 Other abnormal and inconclusive findings on diagnostic imaging of breast
CPT/HCPCS: 76642; 77066; G0279

== ENCOUNTER 2025-01-31 09:53 | Outpatient (CLI) | payer OTHER, SELFPAY ==
--- NOTE | 2025-01-31 10:15 | CRLHL7_ITS ---
For Patients: As a result of the Century Cures Act, medical imaging exams and procedure reports are released immediately into your electronic medical record. You may view this report before your referring provider. If you have questions, please contact your health care provider. ULTRASOUND-GUIDED BREAST BIOPSY AND POST-BIOPSY DIGITAL MAMMOGRAM FOR BIOPSY MARKER PLACEMENT CLINICAL HISTORY: Indeterminate solid nodule with increased PET uptake. COMPARISON STUDIES: Ultrasound 01/24/2025. TECHNIQUE: Real-time ultrasound with image documentation was used for targeting the breast lesion. Core biopsy specimens were obtained using an automated gun with an 18-gauge biopsy needle. Post-biopsy CC and ML digital mammograms were obtained to document position of the biopsy marker. CONSENT and TIME OUT: The procedure, risks, and alternatives were explained to the patient and a consent was signed. [place] Protocol was followed including pre-procedure verification that relevant information/documentation was available, reviewed and properly matched to the patient; consent accurate and complete; and equipment and supplies available. Time Out was conducted just prior to starting procedure to verify the four required elements: patient identity, correct side/site marked (if applicable), procedure, relevant images/results properly labeled and displayed (if applicable). PROCEDURE: The patient was positioned supine on the ultrasound table. The breast was prepped with ChloraPrep. 8 cc of 1 percent lidocaine used for local anesthesia. Core samples were obtained. A sterile metal biopsy clip was placed percutaneously to gricel the lesion position within the breast. The specimens were placed in 10% formalin and sent to the pathology department. Pressure was held on the biopsy site until all bleeding subsided. The skin incision was closed with Steri-Strips. An ice pack was positioned over the biopsy site. Post-biopsy instructions were reviewed with the patient, and a written copy was given to her. LATERALITY: RIGHT breast. LESION: Solid heterogeneously hypoechoic lesion measuring 1.4 x 1.2 x 1.5 cm at 7 o`clock 3 cm from the nipple. SUSPICION FOR MALIGNANCY: High. NUMBER OF SAMPLES: 5. BIOPSY CLIP SHAPE: Oval. PROXIMITY OF CLIP TO TARGET: Within the lesion. IMPRESSION: Ultrasound-guided breast biopsy. When the pathology report is available, an addendum to this report will be made. ACR not applicable Dictated by Emir Alvarez MD @ 01/31/2025 12:35:14 PM jj/Dictated by: Emir Alvarez MD @ 01/31/2025 12:35:00 PM (Electronically Signed)
--- NOTE | 2025-01-31 11:00 | CRLHL7_ITS ---
For Patients: As a result of the Century Cures Act, medical imaging exams and procedure reports are released immediately into your electronic medical record. You may view this report before your referring provider. If you have questions, please contact your health care provider. SEE ULTRASOUND-GUIDED RIGHT BREAST BIOPSY PERFORMED SAME DAY CRL:jael elder/Dictated by: Emir Alvarez MD @ 01/31/2025 12:33:00 PM (Electronically Signed)
== END 2025-01-31 09:54 | disposition home or self-care (01) ==
LOC: US 09:53
PROVIDERS: PCP Family Medicine; Visit Provider Family Medicine
DX: N63.10 Unspecified lump in the right breast, unspecified quadrant (principal); C50.911 Malignant neoplasm of unspecified site of right female breast; R92.8 Other abnormal and inconclusive findings on diagnostic imaging of breast
CPT/HCPCS: 19083; 77065; 88305; 88341; 88342; 88360; 88361; A4648; A4649

== ENCOUNTER 2025-02-15 10:21 | Outpatient (CLI) | payer OTHER, SELFPAY | END 2025-02-15 10:22 | disposition home or self-care (01) | LOC: LKVREF 10:22 | PROVIDERS: PCP Family Medicine; Visit Provider Family Medicine | DX: Z01.818 Encounter for other preprocedural examination (principal) | CPT/HCPCS: 80053 ==

== ENCOUNTER 2025-02-28 12:12 | Inpatient (IN) | payer OTHER, SELFPAY ==
[2025-02-27] VITALS (15 sets, daily range): BP systolic 113–173; BP diastolic 20–107; PULSE 57–86; RESP 16–18; TEMP 36.2–37.1; O2SAT 92–97; BMI 17.3
[2025-02-27] MEDS: SODIUM CHLORIDE 0.9 % (FLUSH) 10 ML SYRINGE IVF (06:59)
[2025-02-27] MEDS: LACTATED RINGERS 1000 ML 1,000 ML 100 ML IV (06:59)
--- NOTE | 2025-02-27 07:42 | W.PM.H&PU ---
History & Physical Update History & Physical Update H&P Reviewed and patient assessed: No changes noted
--- NOTE | 2025-02-27 07:45 | CRLHL7_ITS ---
For Patients: As a result of the Century Cures Act, medical imaging exams and procedure reports are released immediately into your electronic medical record. You may view this report before your referring provider. If you have questions, please contact your health care provider. INDICATION Malignant neoplasm of the right breast. Injection for sentinel lymph node scintigraphy. Informed consent was obtained by Dr. Sarah Saenz. She discussed the risks and benefits of the procedure. The patient agreed to proceed. [place] Protocol: A. Pre-procedure verification complete: Yes 1-relevant information/documentation available, reviewed and properly matched to the patient; 2-consent accurate and complete, 3-equipment and supplies available. B. Site marking complete: Yes Site marked if not in continuous attendance with patient. C. TIME OUT completed: Yes Time Out was conducted just prior to starting procedure to verify the eight required elements: 1-patient identity, 2-consent accurate and complete, 3-position, 4-correct side/site marked (if applicable), 5-procedure, 6-relevant images/results properly labeled and displayed (if applicable), 7-antibiotics/irrigation fluids (if applicable), 8-safety precautions, 9-laboratory results were reviewed. Utilizing sterile technique, 1.09 mCi Tc-99m filtered Sulfur Colloid was injected within an intradermal location superior lateral to the right nipple areolar complex. The patient tolerated the injection well. No immediate complications were documented. No subsequent imaging. IMPRESSION: Technically successful right breast injection for sentinel lymph node scintigraphy. Celio Grace M.D. Diagnostic/Nuclear Medicine Radiologist [email or web address] Transcribed: 11:01 am DW/Dictated by: Celio Grace MD @ 02/27/2025 10:00:00 AM (Electronically Signed)
[2025-02-27] MEDS: ISOSULFAN BLUE 5 ML VIAL 3 ML INJECTION (08:37)
[2025-02-27] MEDS: CLINDAMYCIN 600 MG/50 ML-D5W 600 MG/50 ML PIGGYBACK 100 MG IVPB (08:39)
[2025-02-27] MEDS: LIDOCAINE 1 % PF 30 ML 10 ML INJECTION (08:51)
[2025-02-27] MEDS: BUPIVACAINE 0.25% 30 ML 9 ML INJECTION (08:51)
--- NOTE | 2025-02-27 10:02 | P.GSOP_ITS ---
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 Injection of radionucleotide tracer 2. Right mastectomy 3. Right axillary sentinel lymph node biopsy Indications: Patient is a 75-year-old female with recent diagnosis metaplastic carcinoma the right breast. Please see consultation note for full discussion. Risks and benefits of operative intervention were discussed at length with the patient. Risks included but was not limited to: Bleeding, infection, risk of damage to surrounding structures, possible need for additional procedures, [possible need to convert to an open operation] and postoperative complications such as pneumonia, pulmonary emboli or RI. All questions and concerns were addressed with the patient agreeing to proceed. Procedure Description: After discussing the risks and benefits of the procedure, the patient signed informed consent.? I injected a radionucleotide tracer in the right breast, periareolar near the tumor, which was in theright lower quadrant. The operative site was marked and the patient was brought to the operating room and placed on the operating table in supine position.? Care was taken to pad the patient's pressure points.?? The patient was then given sedation by anesthesia.?? JANY blocks were placed on the right side by anesthesia.? A time-out was then performed. I injected 5 cc of lymphazurin blue in the patient's [] breast. I then performed breast massage for a period of 5 minutes. The operative site was then prepped and draped in the usual sterile fashion. I performed an elliptical incision on the right breast around the nipple-areolar complex and started by dissecting the subcutaneous tissues using electrocautery. The breast flaps were created circumferentially, dissecting all the breast tissue off of the overlying skin superiorly up to the clavicle, medially to the lateral border of the sternum, laterally out to the latissimus and inferiorly to the inferior aspect of the breast fold. Once flaps had been raised in all 4 directions down to the level of the fascia, the breast was taken off of the chest wall. I included the fascia in my dissection. The underlying pectoralis muscle was inspected and hemostasis was appreciated. The breast was removed through the incision and marked with a stitch at the 12 o'clock position. It was sent to pathology for immediate assessment. Margins were close posterior, but did not invade the underlying fascia. Margins were therefore negative with no further specimens taken. I then proceeded to take out the sentinel lymph nodes through the mastectomy incision. Using the Neoprobe I identified the sentinel lymph nodes. The vascular pedicle of each lymph node was tied off with 3-0 Vicryl. All nodes were grossly normal. Nodes were passed off the field as sentinel nodes 1, and 2 for a frozen evaluation, which came back as no evidence of malignancy. Background counts in the axilla were low. The incision was irrigated with sterile water. Hemostasis was assured. I closed the clavipectoral fascia with interrupted 3 0 Vicryl. A 15 [place] DENVER drain was placed right lateral and secured with a nylon stitch. The incision was then closed in layers with interrupted 3 0 Vicryl and running 4-0 Monocryl. Sterile dressings were then applied. An James wrap was placed over the chest to allow for compression. ? The patient was then woken and transported to the recovery area in stable condition. ? The patient tolerated the procedure well. Findings: Right breast mass, margins negative. [place] lymph nodes 1 and 2 removed and frozen evaluation shows no evidence of metastatic disease. Anesthesia: MAC and local Surgeon: Sarah Saenz MD Estimated blood loss (mL): 25 Additional Specimen Information: 1. Right breast 2. [place] lymph node 1 3. [place] lymph node 2 Condition: stable Disposition: PACU [place] Node Biopsy for Breast Cancer Operation Performed with Curative Intent: Yes Tracers used to Identify sentinel nodes in the upfront surgery (non-neoadjuvant) setting: Dye and Radioactive Tracer Tracers used to identify sentinel nodes in the neoadjuvant setting: N/A All nodes (colored or non-colored) present at the end of a dye filled lymphatic channel were removed: Yes All significantly radioactive nodes were removed: Yes All palpably suspicious nodes were removed: Yes Biopsy proven positive nodes marked with clips prior to chemotherapy were identified and removed: Not Applicable
--- NOTE | 2025-02-27 10:48 | P.ANES_ITS ---
Anesthesia Charges Start Date/Time Anesthesia Start Date: 02/27/25 Anesthesia Start Time: 08:23 Stop Date/Time Anesthesia Stop Date: 02/27/25 Anesthesia Stop Time: 10:30 Summary Extremes of Age - Over 70 or under 1: TAILINGS MAN Coding CPT Codes CPT Codes: ANESTH SURGERY OF SHOULDER - 60442 ([id number]) P3 - PATIENT W/SEVERE SYS DISEASE, QK - ADMINISTRATIVE OPERATIONS COORDINATOR 2-4 CNCRNT ANES PROC, QX - TAILINGS MAN SVC W/ MD MED DIRECTION Additional Codes: Summary - Extremes of Age - Over 70 or under 1: TAILINGS MAN ([id number])
--- NOTE | 2025-02-27 10:48 | W.ANESCHARGE ---
Anesthesia Charges Start Date/Time Anesthesia Start Date: 02/27/25 Anesthesia Start Time: 08:23 Stop Date/Time Anesthesia Stop Date: 02/27/25 Anesthesia Stop Time: 10:30 Summary Extremes of Age - Over 70 or under 1: PLANT UTILITIES ENGINEER Coding CPT Codes CPT Codes: ANESTH SURGERY OF SHOULDER - 14875 ([id number]) P3 - PATIENT W/SEVERE SYS DISEASE, QK - MAPLE SUGAR MAKER 2-4 CNCRNT ANES PROC, QX - PLANT UTILITIES ENGINEER SVC W/ MD MED DIRECTION Additional Codes: Summary - Extremes of Age - Over 70 or under 1: PLANT UTILITIES ENGINEER ([id number])
[2025-02-27] MEDS: HYDROCODONE-ACETAMIN 5-325 MG 1 TAB PO ×3 (11:12→19:08)
--- NOTE | 2025-02-27 11:38 | P.ANES_ITS ---
Anesthesia Charges Start Date/Time Anesthesia Start Date: 02/27/25 Anesthesia Start Time: 08:23 Stop Date/Time Anesthesia Stop Date: 02/27/25 Anesthesia Stop Time: 10:30 Summary Extremes of Age - Over 70 or under 1: MDA Coding CPT Codes CPT Codes: ANESTH SURGERY OF SHOULDER - 52539 ([id number]) QK - NUCLEAR DESIGN ENGINEER 2-4 CNCRNT ANES PROC, QX - BRAZER RESISTANCE SVC W/ MD MED DIRECTION, P3 - PATIENT W/SEVERE SYS DISEASE Additional Codes: Summary - Extremes of Age - Over 70 or under 1: MDA ([id number])
--- NOTE | 2025-02-27 11:38 | W.PM.NB ---
Nerve Block Nerve Block Time Seen by Provider: 08:33 Date Seen: 02/27/25 Type of block requested by surgeon for post-operative analgesia: intercostal and intercostal add on Side: right Time out performed: Yes Verification of patient name: Yes Verification of date of : Yes Site marking: site marked Name of person performing procedure: kyle Continuous monitoring Was continuous monitoring of O2 sat, B/P, cardiac catheterization technician, recorded every 15 minutes?: Yes Procedure Checklist: sterile prep, needles and gloves Ultrasound guided. Images saved: Yes Medications given in 5ml increments after negative aspiration: Marcaine %: 0.25 mL: 7 and Exparel mL: 7 Needle gauge: 22 Patient tolerated procedure well: Yes Block Charges Block Charge (with Pro Fee): Intercostal Nerve Block Use of Ultrasound Machine for Block: Yes- US Guidance/pain block
--- NOTE | 2025-02-27 15:17 | PC.NURSE ---
Patient to floor at 1030, she is ambulating with SBA. Patient utilizing prn medications for pain. DEN[place] stripped x. dressing clean, dry, and intact. at bedside.
[2025-02-27] MEDS: METOPROLOL SUCCINATE (XL) 25 MG TAB PO (21:34)
[2025-02-27] MEDS: LOSARTAN POTASSIUM 50 MG TABLET 25 MG PO (21:35)
--- NOTE | 2025-02-27 23:06 | PM.IMCN1 ---
Date of Consult Patient: [facility] Patient Consult date: 02/27/25 Requesting Physician: General Surgery Primary Care Provider: Gabriel Beatty MD Consult Narrative Reason for consult: Assist with postoperative medical management Narrative: Mariah Alvarez is a 75 year old woman underwent right mastectomy and right axillary sentinel lymph node biopsy due to recent diagnosis of metaplastic carcinoma the right breast. Procedure proceeded uneventfully. Patient's general surgeon, Dr. Saenz, asked the hospitalist service to assist with postoperative management of patient's underlying medical conditions. Patient found to have the lesion in her right breast after undergoing PET-CT scan for evaluation of lung nodules. Lung lesions not FDG avid. Breast lesion was biopsied on 01/31/2025 demonstrating atypical spindle cell process consistent with metaplastic carcinoma of the breast. Review of Systems Status of ROS: Reports: 6 or more systems reviewed and unremarkable except as noted in History and below Narrative: Denies cardiopulmonary concerns or symptoms. Denies gastrointestinal or genitourinary concerns or symptoms. Has always been thin. Maximum weight in her life time was 125 lb. More recently she has been hovering between 100 and 105 lb. Is not trying to lose weight. Denies night sweats. No recent infectious processes. No fevers, rigors, diaphoresis. No recent trauma, injury, travel. Quit smoking about 20 years ago after having smoked about 1 pack per day for 30 years. Occasional social drinking of alcohol only. No drugs of abuse. [facility] Medical History (Updated 02/27/25 @ 23:23 by Vance Estrada MD) Preventative health care ?Z00.00 - Encounter for general adult medical examination without abnormal findings (ICD-10) Osteoporosis ?M81.0 - Age-related osteoporosis without current pathological fracture (ICD-10) Hyponatremia ?E87.1 - Hypo-osmolality and hyponatremia (ICD-10) Nasal septal deviation ?J34.2 - Deviated nasal septum (ICD-10) Personal history of COVID-19 ?Z86.16 - Personal history of COVID-19 (ICD-10) Other arterial embolism and thrombosis of abdominal aorta ?I74.09 - Other arterial embolism and thrombosis of abdominal aorta (ICD-10) Encounter for annual wellness exam in Medicare patient ?Z00.00 - Encounter for general adult medical examination without abnormal findings (ICD-10) History of myocardial infarction ?I25.2 - Old myocardial infarction (ICD-10) Encephalomalacia ?G93.89 - Other specified disorders of brain (ICD-10) Infarction of spleen (06/06/19) ?D73.5 - Infarction of spleen (ICD-10) History of vitamin D deficiency ?Z86.39 - Personal history of other endocrine, nutritional and metabolic disease (ICD-10) History of Raynaud's syndrome ?Z86.79 - Personal history of other diseases of the circulatory system (ICD-10) Basal cell carcinoma (BCC) ?C44.91 - Basal cell carcinoma of skin, unspecified (ICD-10) Microscopic colitis ?K52.839 - Microscopic colitis, unspecified (ICD-10) History of peptic ulcer (1997) ?Z87.11 - Personal history of peptic ulcer disease (ICD-10) History of myeloproliferative disorder (2003) ?Z86.2 - Personal history of diseases of the blood and blood-forming organs and certain disorders involving the immune mechanism (ICD-10) History of colonic polyps (1998) ?Z86.010 - Personal history of colonic polyps (ICD-10) Surgical History History of total abdominal hysterectomy and bilateral salpingo-oophorectomy (01/2003) ?Z90.710 - Acquired absence of both cervix and uterus (ICD-10) ?Z90.722 - Acquired absence of ovaries, bilateral (ICD-10) ?Z90.79 - Acquired absence of other genital organ(s) (ICD-10) History of mandibular surgery (1983) ?Z98.890 - Other specified postprocedural states (ICD-10) History of breast biopsy ?Z98.890 - Other specified postprocedural states (ICD-10) History of bone marrow biopsy (07/24/14) ?Z98.890 - Other specified postprocedural states (ICD-10) History of abdominal surgery (08/31/19) ?Z98.890 - Other specified postprocedural states (ICD-10) Social History What is your current living situation?: I presently have a place to live Problems where you live: no known problems Problems where you live details: n/a In the past 12 months, utilities in danger of being shut off: no In past 12 months, lack of transportation kept you from medical appts, meetings, work, or getting things needed for daily living: no In the past 12 mos, have been you worried that your food would run out before you had money to buy more?: never true In the past 12 mos, the food you bought just didn't last and you didn't have money to buy more?: never true Smoking Status: Never smoker How often do you have a drink containing alcohol: never AUDIT-C Alcohol total score: 0 Non-prescribed substance use: denies use Caffeine: Yes (2-3/day) How often does anyone, including family, friends and others, physically hurt you: never How often does anyone, including family, friends and others, insult or talk down to you: never How often does anyone, including family, friends and others, threaten you with harm: never How often does anyone, including family, friends and others, scream or curse at you: never service: No Meds Home Medications and Allergies Home Medications ?Medication ?Instructions ?Recorded ?Confirmed ?Type hydroxyurea 500 mg capsule 500 mg PO DAILY 05/22/22 02/27/25 History acetaminophen 325 mg tablet 325 mg PO Q6H PRN 06/12/22 02/27/25 History inhalational spacing device #1 ea 12/28/23 02/13/25 History (Compact Space Chamber) apixaban 5 mg tablet 5 mg PO BID #180 tabs 08/04/24 02/27/25 Rx calcium citrate 600 mg PO BID 10/05/24 02/27/25 History cholecalciferol (vitamin D3) 50 50 mcg PO BID #180 caps 10/05/24 02/27/25 Rx mcg (2,000 unit) capsule losartan 25 mg tablet 25 mg PO BID #180 tabs 01/15/25 02/27/25 Rx albuterol sulfate 90 mcg/actuation 2 puff inhalation Q4-6H PRN 01/16/25 02/27/25 Rx aerosol inhaler shortness of breath or wheezing #6.7 grams metoprolol succinate 25 mg 25 mg PO BID #180 tabs 02/02/25 02/27/25 Rx tablet,extended release 24 hr rosuvastatin 10 mg tablet 10 mg PO HS 02/27/25 02/27/25 History Allergies Allergy/AdvReac Type Severity Reaction Status Date / Time clonidine Allergy Unknown Dizziness Verified 02/27/25 06:44 [facility] Allergy Verified 02/27/25 06:44 atorvastatin Allergy Verified 02/27/25 06:44 cefdinir Allergy Verified 02/27/25 06:44 clarithromycin Allergy Hives Verified 02/27/25 06:44 gluten Allergy Verified 02/27/25 06:44 Sulfa (Sulfonamide Allergy Verified 02/27/25 06:44 Antibiotics) collasal Allergy Severe blood Uncoded 02/15/25 11:00 pressure elevated Exam Narrative: Exam Narrative: I examined the patient in her hospital room postoperatively. Appears comfortable when I see her. Very thin with cachectic features including sunken facial features, thin upper and lower extremities, prominent bones. Vision and hearing are adequate. Alert and oriented x3. Friendly, articulate, cooperative. No icterus, jaundice, petechiae, or rashes. Midline nasal septum, moist buccal mucosa, dentition in fair repair. Neck is thin, supple. No head neck lymphadenopathy. Lungs are clear to auscultation. Heart tones with regular rhythm. Abdomen thin with active bowel sounds, soft. Extremities without edema. Moves all 4 extremities. No focal motor neurologic deficits. Skin is dry and intact. Const: Vital Signs, click to edit/add: Vital Signs - 24 hr 02/27/25 07:25 02/27/25 10:34 02/27/25 10:49 Temperature 98.8 F 97.2 F L 97.2 F L Pulse Rate 80 Pulse Rate [Pulse Oximeter] 57 L 86 Respiratory Rate 16 18 18 Blood Pressure 134/96 H Blood Pressure [Le ft Arm] 128/79 139/93 H Pulse Oximetry 97 95 95 Oxygen Delivery Me thod Room Air Room Air 02/27/25 11:04 02/27/25 11:19 02/27/25 11:49 Temperature 97.3 F L 97.3 F L 97.7 F Pulse Rate Pulse Rate [Pulse Oximeter] 57 L 57 L 60 Respiratory Rate 18 18 18 Blood Pressure Blood Pressure [Le ft Arm] 137/92 H 134/87 153/93 H Pulse Oximetry 95 95 96 Oxygen Delivery Me thod Room Air Room Air Room Air 02/27/25 12:19 02/27/25 13:19 02/27/25 14:12 Temperature 97.7 F 97.6 F 97.7 F Pulse Rate Pulse Rate [Pulse Oximeter] 64 60 60 Respiratory Rate 18 18 18 Blood Pressure Blood Pressure [Le ft Arm] 153/86 H 153/67 H 145/94 H Pulse Oximetry 93 96 93 Oxygen Delivery Me thod Room Air Room Air Room Air 02/27/25 15:00 02/27/25 15:30 02/27/25 16:30 Temperature 97.4 F L 98.4 F Pulse Rate Pulse Rate [Pulse Oximeter] 65 69 Respiratory Rate 16 16 Blood Pressure Blood Pressure [Le ft Arm] 173/107 H 153/94 H Pulse Oximetry 92 92 92 Oxygen Delivery Me thod Room Air Room Air Room Air 02/27/25 19:00 02/27/25 20:30 Temperature 97.3 F L Pulse Rate Pulse Rate [Pulse Oximeter] 72 Respiratory Rate 16 Blood Pressure Blood Pressure [Le ft Arm] 152/20 H 139/85 Pulse Oximetry 97 Oxygen Delivery Me thod Room Air Assessment and Plan Assessment and plan (1) Metaplastic carcinoma of breast: Problem comment: - status post Right mastectomy and Right axillary sentinel lymph node biopsy 02/27/2025, Dr. Palacios, [facility] Status: Acute (2) Hyponatremia: Problem comment: - chronic with sodiums around 125 Status: Acute (3) Unspecified protein-calorie malnutrition: Problem comment: abstracted [place] records, 06/07/19 Status: Chronic (4) Mesenteric ischemia: Status: Chronic (5) Hypercholesterolemia: Status: Chronic (6) Atherosclerosis of [place] coronary artery without angina pectoris: Problem comment: Medical therapy recommended by Dr. Sunshine, [place]. 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 Status: Chronic (8) Unsteady gait: Status: Chronic (9) Anemia: Status: Chronic (10) Anxiety: Status: Chronic (11) Hypertension: Status: Chronic (12) Chronic obstructive pulmonary disease: Status: Chronic (13) History of myeloproliferative disorder: Problem comment: Thrombocytosis subtype & Jak2 mutation. Abstracted [place] record. Status: Chronic (14) Thrombocythemia: Problem comment: Thrombocytosis subtype & Jak2 mutation. Abstracted [place] record. Status: Chronic (15) History of peptic ulcer: Problem comment: Ulcer ~1997. Abstracted [place] record Status: Acute (16) Heart failure: Problem comment: [facility] NYHA 1. Status: Chronic (17) Complex partial seizure: Problem comment: Abstracted [facility] record. Status: Acute Plan 1. Reviewed impression, plans, recommendations with patient 2. Answered patient's questions to her satisfaction 3. Hospitalist service will follow patient while in hospital under the care of Dr. Saenz 4. Continue with supportive efforts for underlying medical conditions 5. Patient agreeable with above stated plans and recommendations Total Time Spent Total Time Spent: 60 minutes
--- NOTE | 2025-02-27 23:24 | PC.NURSE ---
End of shift Note (256)? ? Patient has been very pleasant and cooperative throughout shift. She was admitted after a right-side mastectomy. Patient has a DENVER clipped on the front of her gown, and discharge was 5 cc 0. She has been taking pain management IV as well as PO, and her pain has been well managed. Patient has a Hx of anxiety and Renauld's syndrome. Surgical dressing at the DENVER insertion has a small bloody discharge. A small bruise/edema was noted on the upper right side of her breast, but it is suspected to have been caused due to the dressing?s position. Patient has a limb restriction bracelet on right wrist. She moves stand by one assist by holding onto hand on left side. Patient has been getting up to the bathroom ?every 15 minutes? according to her [place]. Small output has been recorded. Patient refused to be bladder-scanned due to ?intolerance to the gel?s consistency?. Patient states she has a ?gluten allergy?.? ?
[2025-02-28] VITALS (7 sets, daily range): BP systolic 108–136; BP diastolic 63–77; PULSE 62–90; RESP 16–20; TEMP 36.8–37.3; O2SAT 89–96
[2025-02-28] MEDS: HYDROCODONE-ACETAMIN 5-325 MG 1 TAB PO ×6 (02:41→22:29)
--- NOTE | 2025-02-28 05:54 | PC.NURSE ---
End of shift report [id number]: VSS. Afebrile. Pt has a right DENVER drain that is intact and patent post mastectomy. Total drainage this shift was 30 ccs.? Pt has a R arm restriction; band is in place. Pt had urinary frequency overnight, caption writer noted no urine output 2 times after utilizing the BR. Night Shift Manager asked to bladder scan and pt refused expressing that she does not like the gel. Bruising noted on patients anterior right?chest near the arm pit. Pt ambulates 1A to BR.?Bed alarm on, call light within reach.?
--- NOTE | 2025-02-28 07:46 | P.GSPN_ITS ---
Subjective Subjective Date Seen: 02/28/25 Interval history: Patient doing well this morning. She did require some IV pain medicine overnight and is worried about how she is going to manage her pain this morning. She has been ambulating to the bathroom without difficulty. Tolerating a r egular diet. No other concerns. Exam Narrative: Exam Narrative: General: Alert and oriented, no acute distress Breast: Right sided mastectomy incision with Steri-Strips in place clean/dry/intact. Small amount of ecchymoses on the medial aspect of the chest wall. DENVER drain in place with minimal dark sanguinous output. No large hematoma or seroma appreciated. Const: Vital Signs, click to edit/add: Vital Signs - 24 hr 02/27/25 10:34 02/27/25 10:49 02/27/25 11:04 Temperature 97.2 F L 97.2 F L 97.3 F L Pulse Rate [Pulse Oximeter] 57 L 86 57 L Respiratory Rate 18 18 18 Blood Pressure [Le ft Arm] 128/79 139/93 H 137/92 H Pulse Oximetry 95 95 95 Oxygen Delivery Me thod Room Air Room Air Room Air 02/27/25 11:19 02/27/25 11:49 02/27/25 12:19 Temperature 97.3 F L 97.7 F 97.7 F Pulse Rate [Pulse Oximeter] 57 L 60 64 Respiratory Rate 18 18 18 Blood Pressure [Le ft Arm] 134/87 153/93 H 153/86 H Pulse Oximetry 95 96 93 Oxygen Delivery Me thod Room Air Room Air Room Air 02/27/25 13:19 02/27/25 14:12 02/27/25 15:00 Temperature 97.6 F 97.7 F Pulse Rate [Pulse Oximeter] 60 60 Respiratory Rate 18 18 Blood Pressure [Le ft Arm] 153/67 H 145/94 H Pulse Oximetry 96 93 92 Oxygen Delivery Me thod Room Air Room Air Room Air 02/27/25 15:30 02/27/25 16:30 02/27/25 19:00 Temperature 97.4 F L 98.4 F 97.3 F L Pulse Rate [Pulse Oximeter] 65 69 72 Respiratory Rate 16 16 16 Blood Pressure [Le ft Arm] 173/107 H 153/94 H 152/20 H Pulse Oximetry 92 92 97 Oxygen Delivery Me thod Room Air Room Air Room Air 02/27/25 20:30 02/27/25 23:00 02/27/25 23:00 Temperature 98.5 F Pulse Rate [Pulse Oximeter] 84 Respiratory Rate 16 16 Blood Pressure [Le ft Arm] 139/85 113/63 Pulse Oximetry 94 94 Oxygen Delivery Me thod Room Air Room Air 02/28/25 00:27 02/28/25 03:00 Temperature 98.9 F Pulse Rate [Pulse Oximeter] Respiratory Rate 16 16 Blood Pressure [Le ft Arm] 134/63 Pulse Oximetry 93 Oxygen Delivery Me thod Room Air Progress Note:A&P Assessment and plan (1) S/P mastectomy: Status: Acute Assessment and Plan: Patient is status post right breast mastectomy and sentinel lymph node biopsy. Doing well postoperatively. If pain is able to be managed this morning with oral medication patient is okay to discharge to home. Plan -regular diet -encourage ambulation -continue with James wrap in place -Education regarding management of DENVER drain
[2025-02-28] MEDS: METOPROLOL SUCCINATE (XL) 25 MG TAB PO ×2 (09:25→20:52)
[2025-02-28] MEDS: LOSARTAN POTASSIUM 50 MG TABLET 25 MG PO ×2 (09:25→20:52)
[2025-02-28 09:50] LABS: Hematocrit 41.5 % (33.0-51.0); Hemoglobin* 14.2 gm/dL (12.0-16.0); Immature Granulocytes Pct Auto 0.4 %; Lymphocytes Absolute Auto 1.00 K/uL (0.90-2.90); Mean Corpuscular HGB Conc 34 gm/dL (32-36); Mean Corpuscular Hemoglobin 37 pg (26-34); Mean Corpuscular Volume 109 fL (80-100); RDW Coefficient of Variation % 13.6 % (11.5-15.5); Red Blood Count 3.80 m/uL (4.00-5.20); White Blood Count* 12.10 K/uL (4.50-11.00)
[2025-02-28 09:52] LABS: Immature Granulocytes Abs Auto 0.00 K/uL (0.00-0.30); Slide Review Reflex No
[2025-02-28 10:01] LABS: Chloride* 88 mmol/L (96-114)
[2025-02-28 10:02] LABS: Albumin* 4.4 g/dL (3.3-5.0); Potassium* 4.2 mmol/L (3.6-5.1)
[2025-02-28 10:04] LABS: Alanine Aminotransferase* 27 U/L (4-35); Aspartate Amino Transferase* 45 U/L (12-35); Bilirubin Total* 1.1 mg/dL (0.1-1.5); Blood Urea Nitrogen* 14 mg/dL (7-30); Creatinine* 0.5 mg/dL (0.5-1.5); Est. Creatinine Clearance* 36.80; Estimated Glomerular Filt Rate 97 ml/min
[2025-02-28 10:05] LABS: Alkaline Phosphatase* 80 U/L (40-150); Anion Gap 7 mEq/L (7-15); Calcium* 9.8 mg/dL (8.4-10.6); Carbon Dioxide* 27 mmol/L (20-32); Glucose* 126 mg/dL (60-115); Total Protein* 7.1 g/dL (6.0-8.3)
[2025-02-28 10:08] LABS: Sodium* 122 mmol/L (135-149)
[2025-02-28] MEDS: 3 % SODIUM CHLORIDE 500 ml 50 ML 33.33 ML IV (10:53)
--- NOTE | 2025-02-28 11:07 | P.IMPN_ITS ---
Assessment and Plan Assessment and plan (1) Hyponatremia: Problem comment: -Hx of chronic with sodiums around 125 -02/28: Na+ low at 122, she mentioned that in the past she was admitted for severe symptomatic hyponatremia (seizures). Currently asymptomatic. -Will give 50 mls of hypertonic Saline and re-check Na+. -Will monitor Status: Acute (2) Metaplastic carcinoma of breast: Problem comment: - status post Right mastectomy and Right axillary sentinel lymph node biopsy 02/27/2025, Dr. Saenz, [facility] Status: Acute (3) Unspecified protein-calorie malnutrition: Problem comment: abstracted [place] records, 06/07/19 Status: Chronic (4) Mesenteric ischemia: Status: Chronic (5) Hypercholesterolemia: Status: Chronic (6) Atherosclerosis of [place] coronary artery without angina pectoris: Problem comment: Medical therapy recommended by Dr. Sunshine, [place]. Abstracted [place] [facility] note Status: Chronic (7) Encephalomalacia: Problem comment: Per 09/06/[address] [place] [address]: Old L temporoparietal infarct/encephalomalacia. Status: Chronic (8) Unsteady gait: Status: Chronic (9) Anemia: Status: Chronic (10) Anxiety: Status: Chronic (11) Hypertension: Status: Chronic (12) Chronic obstructive pulmonary disease: Status: Chronic (13) History of myeloproliferative disorder: Problem comment: Thrombocytosis subtype & Jak2 mutation. Abstracted [place] record. Status: Chronic (14) Thrombocythemia: Problem comment: Thrombocytosis subtype & Jak2 mutation. Abstracted [place] record. Status: Chronic (15) History of peptic ulcer: Problem comment: Ulcer ~1997. Abstracted [place] record Status: Acute (16) Heart failure: Problem comment: Abstracted [facility] record. NYHA 1. Status: Chronic (17) Complex partial seizure: Problem comment: Abstracted [facility] record. Status: Acute Plan As above Total Time Spent Total Time Spent: Today I spent 50 minutes seeing the patient, reviewing Expanse and EPIC notes/diagnostics, discussing the care plan with our care time that includes social work, PT/OT, pharmacy, RT, longterm and documenting my impressions and plan in the medical record. Subjective Date Seen: 02/28/25 Interval history: Patient was seen and examined at bedside today. She states that she feels well. Pain controlled. I discussed with the patient and her her lab results from today, Na+ low at 122. Patient has history of chronic hyponatremia, she mentioned that in the past she was admitted for severe symptomatic hyponatremia (seizures). Will give 50 mls of hypertonic Saline and re-check Na+. Exam Narrative: Exam Narrative: Physical exam GENERAL: Cachectic, no acute distress. HEAD AND NECK: Atraumatic, normocephalic CARDIOVASCULAR: RRR. Normal S1, S2. RESPIRATORY: Clear to auscultation B/L. Good air entry B/L. NEUROLOGY: Alert, awake, oriented X 3. Normal speech. PSYCH: Normal mood, normal affect. Const: Vital Signs, click to edit/add: Vital Signs - 24 hr 02/27/25 11:19 02/27/25 11:49 02/27/25 12:19 Temperature 97.3 F L 97.7 F 97.7 F Pulse Rate [Pulse Oximeter] 57 L 60 64 Respiratory Rate 18 18 18 Blood Pressure [Le ft Arm] 134/87 153/93 H 153/86 H Pulse Oximetry 95 96 93 Oxygen Delivery Ar thod Room Air Room Air Room Air 02/27/25 13:19 02/27/25 14:12 02/27/25 15:00 Temperature 97.6 F 97.7 F Pulse Rate [Pulse Oximeter] 60 60 Respiratory Rate 18 18 Blood Pressure [Le ft Arm] 153/67 H 145/94 H Pulse Oximetry 96 93 92 [facility] Room [facility] Room Air 02/27/25 15:30 02/27/25 16:30 02/27/25 19:00 Temperature 97.4 F L 98.4 F 97.3 F L Pulse Rate [Pulse Oximeter] 65 69 72 Respiratory Rate 16 16 16 Blood Pressure [Le ft Arm] 173/107 H 153/94 H 152/20 H Pulse Oximetry 92 92 97 Oxygen Delivery Ar thod Room Air Room Air Room Air 02/27/25 20:30 02/27/25 23:00 02/27/25 23:00 Temperature 98.5 F Pulse Rate [Pulse Oximeter] 84 Respiratory Rate 16 16 Blood Pressure [Le ft Arm] 139/85 113/63 Pulse Oximetry 94 94 [facility] Room Air 02/28/25 00:27 02/28/25 03:00 02/28/25 07:00 Temperature 98.9 F 99.1 F Pulse Rate [Pulse Oximeter] 64 Respiratory Rate 16 16 18 Blood Pressure [Le ft Arm] 134/63 136/77 Pulse Oximetry 93 96 Oxygen Delivery Me thod Room Air Room Air 02/28/25 07:00 02/28/25 07:00 02/28/25 11:00 Temperature 98.8 F Pulse Rate [Pulse Oximeter] 64 62 Respiratory Rate 18 18 16 Blood Pressure [Le ft Arm] 109/66 Pulse Oximetry 96 94 Oxygen Delivery Me thod Room Air Room Air Labs Labs: Laboratory Results - last 24 hr 02/28/25 09:36 WBC 12.10 H RBC 3.80 L Hgb 14.2 Hct 41.5 MCV 109 H MCH 37 H MCHC 34 RDW Coeff of Bro 13.6 Plt Count 325 Neut % (Auto) 86.4 H Lymph % (Auto) 8.3 L [place] % (Auto) 3.7 Eos % (Auto) 0.7 Baso % (Auto) 0.5 Neut # (Auto) 10.50 H Lymph # (Auto) 1.00 [place] # (Auto) 0.40 Eos # (Auto) 0.10 Baso # (Auto) 0.10 Abs Immat Gran (auto) 0.00 Imm/Tot Granulo (auto) 0.4 Sodium 122 L* Potassium 4.2 Chloride 88 L Carbon Dioxide 27 Anion Gap 7 BUN 14 Creatinine 0.5 Estimated Creat Clear 36.80 Estimated GFR 97 Glucose 126 H Calcium 9.8 Total Bilirubin 1.1 AST 45 H ALT 27 Alkaline Phosphatase 80 Total Protein 7.1 Albumin 4.4
--- NOTE | 2025-02-28 11:36 | NUTR.NU ---
RDN with nutrition screen for low BMI 17.3 kg/m2. Patient admitted with metaplastic carcinoma of breast s/p right mastectomy and right axillary sentient lymph node biopsy 02/27/25. DENVER drain in place. Medical history includes, but not limited to anemia, thrombocythemia, CAD, hx of strokes and seizures due to hyponatremia, hypertension, COPD, heart failure, and hypercholesterolemia. Patient reports a good appetite prior to admission with eating a 2 bigger meals a day. Patient denied any recent changes in oral intakes. Patient reports a UBW of ~105lbs and notes always being pretty lean. Current weight 107lbs, height 5ft 6in, and BMI 17.3 kg/m2. No significant weight change noted per patient or weight history. Weight history: 02/13/25 107lbs, 11/17/24 105lbs, 05/29/24 103lbs, 05/01/24 104lbs. Patient is on a regular diet with 1500 ml fluid restriction. Patient does have a gluten intolerance. Patient had no questions or concerns with this. Patient reports a good appetite and ate 100% of breakfast this morning consisting of cheese omelet, 2% milk, banana, and 2 pieces of gluten free toast. RDN will continue to monitor and follow-up prn.
[2025-02-28] MEDS: HYDROXYUREA 500 MG PO ×2 (12:35→20:53)
[2025-02-28 13:35] LABS: Sodium* 122 mmol/L (135-149)
[2025-02-28] MEDS: 3 % SODIUM CHLORIDE 500 ml 100 ML 33.33 ML IV (14:07)
--- NOTE | 2025-02-28 14:57 | PC.NURSE ---
Patient up with SBA, DENVER patent and intact 15 mls out my shift. Patients sodium 122 received 50cc 3%NS without change, now has 100 ml 3%NS @ 33/hr. Patient utilizing prn medications for pain management. Small amount of shadow drainage to Right chest dressing and bruising to Right arm pit. Hydroxyurea medication brought in by whom has been at patients bedside.
[2025-02-28 19:36] LABS: Sodium* 122 mmol/L (135-149)
[2025-02-28] MEDS: 3 % SODIUM CHLORIDE 500 ml 30 ML IV (22:00)
--- NOTE | 2025-02-28 23:14 | PC.NURSE ---
End of shift note (256)? Patient has been very pleasant and cooperative throughout shift. Admitted for recovery after right side mastectomy (02/27/2025). Pain management has been adequate through shift with PO medications. Surgical dressing is intact and dry. Patient moves well with stand by assist. Patient?s sodium levels have been low (122) throughout shift. 0.3% Saline has infused twice (last bolus 22:00). Lung sounds are clear, no edema on legs present. Patient is using LEX socks bilaterally but declined SCDs. Bed alarm is on. Daniel?s last output was 5 cc (2200). Patient is on chemo precautions due to her prescribed Hydroxyurea.
[2025-03-01] MEDS: HYDROCODONE-ACETAMIN 5-325 MG 1 TAB PO ×2 (02:05→06:39)
[2025-03-01 02:13] VITALS: BP 127/77; PULSE 72; RESP 18; TEMP 37.2; O2SAT 90
--- NOTE | 2025-03-01 04:54 | NUTR.NU ---
Shift note: Patient is doing well ambulating with SBA. Pain level at 0230 was as high as 7 and PRN pain med given. Alert and oriewn
--- NOTE | 2025-03-01 05:01 | PC.NURSE ---
Shift note: Patient alert and oriented. Vitally stable. Ambulated with SBA with minimal support to bathroom. Chemo precaution in place. Dressing and ANTHONY wrap intact. No discharges and bleeding noted. Weight this morning was 104.1LB. continue on fluid restriction
[2025-03-01 06:40] LABS: Hematocrit 41.5 % (33.0-51.0); Hemoglobin* 14.0 gm/dL (12.0-16.0); Immature Granulocytes Abs Auto 0.06 K/uL (0.00-0.30); Immature Granulocytes Pct Auto 0.6 %; Mean Corpuscular HGB Conc 34 gm/dL (32-36); Mean Corpuscular Hemoglobin 37 pg (26-34); Mean Corpuscular Volume 110 fL (80-100); RDW Coefficient of Variation % 13.5 % (11.5-15.5); Red Blood Count 3.79 m/uL (4.00-5.20); White Blood Count* 10.83 K/uL (4.50-11.00)
[2025-03-01 06:45] LABS: Lymphocytes Absolute Auto 1.00 K/uL (0.90-2.90); Slide Review Reflex No
[2025-03-01 06:55] LABS: Chloride* 96 mmol/L (96-114); Potassium* 4.2 mmol/L (3.6-5.1); Sodium* 128 mmol/L (135-149)
[2025-03-01 06:58] LABS: Anion Gap 5 mEq/L (7-15); Blood Urea Nitrogen* 15 mg/dL (7-30); Calcium* 10.1 mg/dL (8.4-10.6); Carbon Dioxide* 27 mmol/L (20-32); Creatinine* 0.7 mg/dL (0.5-1.5); Est. Creatinine Clearance* 36.80; Estimated Glomerular Filt Rate 90 ml/min; Glucose* 99 mg/dL (60-115)
[2025-03-01 07:00] VITALS: BP 133/74; PULSE 72; RESP 16; RESP 18; TEMP 37; O2SAT 93
--- NOTE | 2025-03-01 08:48 | PM.DS1 ---
DS: Providers Provider Date Seen: 03/01/25 Date of admission: 02/28/25 12:12 Primary care physician: Gabriel Beatty MD Admitting Clinician: Sarah Saenz MD Consults: 02/27/25 10:34 Consult to Physician [CONS] Routine Comment: Consulting Provider: Lilly Fabian Has provider been notified: Yes Attending Physician on discharge: Sarah Saenz MD DS: Summary Hospital Course Hospital Course: Patient was admitted following a right breast mastectomy and sentinel lymph node biopsy. On postop day 1 her incisions were well perfused, she had some bloody drainage in her [place] drain. Pain was still being controlled with IV pain medicine. The hospitalist was consulted due to the complex comorbidities with evidence of hyponatremia (122). This was managed with hypertonic saline with repeat sodium this morning on postop day 2 of 128. Her [place] drain still looked bloody in character, but with decreasing output. On examination today she does have bruising of her skin flaps and a small hematoma in her axilla. No concern for ongoing bleeding. Patient should continue to hold her blood thinner until tomorrow. She was cleared for discharge to home. At the time of discharge she was tolerating a regular diet. Pain was well controlled with oral medication. She was ambulating independently and voiding without difficulty. Time Spent with Patient Time attestation: Total time spent providing and/or coordinating discharge services: Exam Narrative: Exam Narrative: General: Alert and oriented, no acute distress Breast: Right breast with James wrap in place. Ecchymoses of the right chest wall. Steri-Strips in place clean/dry/intact. Small hematoma within the axilla. Tissue itself appears well perfused. Drain with sanguinous output, minimal within drain Const: Vital Signs, click to edit/add: Vital Signs - 24 hr 02/28/25 11:00 02/28/25 15:00 02/28/25 15:00 Temperature 98.8 F 99.2 F Pulse Rate [Pulse Oximeter] 62 90 66 Respiratory Rate 16 20 20 Blood Pressure [Le ft Arm] 109/66 118/76 Pulse Oximetry 94 89 Oxygen Delivery Me thod Room Air Room Air 02/28/25 15:00 02/28/25 19:00 02/28/25 23:00 Temperature 98.6 F Pulse Rate [Pulse Oximeter] 72 68 Respiratory Rate 18 18 Blood Pressure [Le ft Arm] 108/66 Pulse Oximetry 89 95 Oxygen Delivery Me thod Room Air Room Air 02/28/25 23:00 02/28/25 23:00 03/01/25 02:13 Temperature 98.3 F 98.9 F Pulse Rate [Pulse Oximeter] 68 72 Respiratory Rate 18 18 18 Blood Pressure [Le ft Arm] 113/66 127/77 Pulse Oximetry 93 93 90 Oxygen Delivery Me thod Room Air Room Air Room Air 03/01/25 07:00 03/01/25 07:00 03/01/25 07:00 Temperature 98.6 F Pulse Rate [Pulse Oximeter] 72 72 Respiratory Rate 18 16 16 Blood Pressure [Le ft Arm] 133/74 Pulse Oximetry 93 93 Oxygen Delivery Me thod Room Air Room Air DS: Data Data Completed and Pending Labs on day of discharge: Labs from last 24 hours 03/01/25 02/28/25 02/28/25 06:10 19:11 13:00 WBC 10.83 RBC 3.79 L Hgb 14.0 Hct 41.5 MCV 110 H MCH 37 H MCHC 34 RDW Coeff of Bro 13.5 Plt Count 332 Neut % (Auto) 84.1 H Lymph % (Auto) 9.1 L [place] % (Auto) 4.1 Eos % (Auto) 1.5 Baso % (Auto) 0.6 Neut # (Auto) 9.10 H Lymph # (Auto) 1.00 [place] # (Auto) 0.40 Eos # (Auto) 0.16 Baso # (Auto) 0.06 Abs Immat Gran (auto) 0.06 Imm/Tot Granulo (auto) 0.6 Sodium 128 L 122 L* 122 L* Potassium 4.2 Chloride 96 Carbon Dioxide 27 Anion Gap 5 L BUN 15 Creatinine 0.7 Estimated Creat Clear 36.80 Estimated GFR 90 Glucose 99 Calcium 10.1 Magnesium 1.8 Total Bilirubin AST ALT Alkaline Phosphatase Total Protein Albumin 02/28/25 09:36 WBC 12.10 H RBC 3.80 L Hgb 14.2 Hct 41.5 MCV 109 H MCH 37 H MCHC 34 RDW Coeff of Bro 13.6 Plt Count 325 Neut % (Auto) 86.4 H Lymph % (Auto) 8.3 L [place] % (Auto) 3.7 Eos % (Auto) 0.7 Baso % (Auto) 0.5 Neut # (Auto) 10.50 H Lymph # (Auto) 1.00 [place] # (Auto) 0.40 Eos # (Auto) 0.10 Baso # (Auto) 0.10 Abs Immat Gran (auto) 0.00 Imm/Tot Granulo (auto) 0.4 Sodium 122 L* Potassium 4.2 Chloride 88 L Carbon Dioxide 27 Anion Gap 7 BUN 14 Creatinine 0.5 Estimated Creat Clear 36.80 Estimated GFR 97 Glucose 126 H Calcium 9.8 Magnesium Total Bilirubin 1.1 AST 45 H ALT 27 Alkaline Phosphatase 80 Total Protein 7.1 Albumin 4.4 Discharge Plan Discharge Disposition: Home, Self-Care Date of Admission: 02/28/25 12:12 Attending Provider on Discharge: Lilly Fabian Consulting Providers: Lilly Fabian Primary Care Provider: Gabriel Beatty Condition: Improved Anticipated Discharge Date/Time: 03/01/25 08:46 Discharge Medications: New hydrocodone-acetaminophen 5-325 mg tablet 1 tab PO Q6H PRN (Reason: pain) Qty: 15 0RF senna 8.6 mg capsule 8.6 mg PO DAILY PRN (Reason: constipation) Qty: 90 0RF Continued acetaminophen 325 mg tablet 325 mg PO Q6H PRN (DME) Compact Space Chamber Spacer See Rx Instructions .ROUTE .MEDSUPPLY Qty: 1 Patient Comments: USE WITH INHALER* Rx Instructions: As directed cholecalciferol (vitamin D3) 50 mcg (2,000 unit) capsule 50 mcg PO BID Qty: 180 3RF calcium citrate 200 mg (950 mg) tablet 600 mg PO BID rosuvastatin 10 mg tablet 10 mg PO HS hydroxyurea 500 mg capsule 500 mg PO DAILY Patient Comments: provider at [facility] 2 tabs 3 times a week 1 tab 4 times a week Rx Instructions: take at same time each day losartan 25 mg tablet 25 mg PO BID Qty: 180 0RF albuterol sulfate 90 mcg/actuation HFA aerosol inhaler 2 puff inhalation Q4-6H PRN (Reason: shortness of breath or wheezing) Qty: 6.7 8RF metoprolol succinate 25 mg tablet extended release 24 hr 25 mg PO BID Qty: 180 1RF Held apixaban 5 mg tablet 5 mg PO BID Qty: 180 3RF Hold Instructions: Resume on 03/02/25. Resume on March 02 as per your surgeon instructions. Discharge Orders: Discharge Order (Routine); Ordered 03/01/25 Ordered By: Lilly Fabian Patient Education: Hydrocodone/Acetaminophen (By mouth), Senna (By mouth), Deep Sedation (DC), NH+C Post-Operative Instructions: Breast Surgery Additional Instructions: You were prescribed a narcotic pain medication. In addition you may supplement with Tylenol and/or ibuprofen. Be sure to not exceed greater than 4 g of Tylenol in a 24 hour period. While on narcotic pain medicine please take stool softeners. A prescription of stool softeners has been sent to the pharmacy. Stop if having greater than 2 stools per day. Continue to wear James wrap all day and night while the drain remains in place. You have Steri-Strips dressings in place, allow these to fall off on their own. Okay to shower starting tomorrow. Do not soak in a bath or swim for 2 weeks. Follow-up with Dr. Saenz in 2-3 weeks. Please call if you are experiencing severe pain, nausea, vomiting, difficulty urinating, fever or not had a bowel movement in 4 days after surgery. Please resume your Eliquis tomorrow 03/02/2025. You need to follow-up with your primary care physician and repeat labs including sodium as it was a bit lower this admission but we increased it to 128 which is usually where your sodium level is low. Activity Level: No strenuous activity Discharge Diet: Regular Follow Up Appointments: Sarah Saenz MD [Staff Physician, General Surgery] - 03/22/25 1:45 pm Referral Note: [facility] for hospital follow-up. Gabriel Beatty MD [Primary Care Provider, Family Practice] Forms: Screen Info Instructions
[2025-03-01] MEDS: LOSARTAN POTASSIUM 50 MG TABLET 25 MG PO (09:00)
[2025-03-01] MEDS: METOPROLOL SUCCINATE (XL) 25 MG TAB PO (09:00)
[2025-03-01] MEDS: HYDROXYUREA 500 MG PO (09:02)
--- NOTE | 2025-03-01 09:39 | P.IMPN_ITS ---
Assessment and Plan Assessment and plan (1) Hyponatremia: Problem comment: -Hx of chronic with sodiums around 125 -02/28: Na+ low at 122, she mentioned that in the past she was admitted for severe symptomatic hyponatremia (seizures). Currently asymptomatic. -S/P hypertonic Saline (small pumps). -03/01: Her sodium level is back to where her baseline is, today morning sodium is 128. Patient is asymptomatic. Ready for DC. Status: Acute (2) Metaplastic carcinoma of breast: Problem comment: - status post Right mastectomy and Right axillary sentinel lymph node biopsy 02/27/2025, Dr. Saenz, [facility] - As per Dr. Saenz, she can resume apixaban 03/02/25. Status: Acute (3) Unspecified protein-calorie malnutrition: Problem comment: abstracted [place] records, 06/07/19 Status: Chronic (4) Mesenteric ischemia: Status: Chronic (5) Hypercholesterolemia: Status: Chronic (6) Atherosclerosis of [place] coronary artery without angina pectoris: Problem comment: Medical therapy recommended by Dr. Sunshine, [place]. 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 Status: Chronic (8) Unsteady gait: Status: Chronic (9) Anemia: Status: Chronic (10) Anxiety: Status: Chronic (11) Hypertension: Status: Chronic (12) Chronic obstructive pulmonary disease: Status: Chronic (13) History of myeloproliferative disorder: Problem comment: Thrombocytosis subtype & Jak2 mutation. Abstracted [place] record. Status: Chronic (14) Thrombocythemia: Problem comment: Thrombocytosis subtype & Jak2 mutation. Abstracted [place] record. Status: Chronic (15) History of peptic ulcer: Problem comment: Ulcer ~1997. Abstracted [place] record Status: Acute (16) Heart failure: Problem comment: Abstracted [place] record. NYHA 1. Status: Chronic (17) Complex partial seizure: Problem comment: Abstracted [facility] record. Status: Acute Plan Follow-up with primary care physician, and with Dr. Saenz clinic as instructed Hold Juvenal till tomorrow March 02 Total Time Spent Total Time Spent: Today I spent 50 minutes seeing the patient, reviewing Expanse and EPIC notes/ diagnostics, discussing the care plan with our care time that includes social work, PT/OT, pharmacy, RT, care home and documenting my impressions and plan in the medical record. Subjective Date Seen: 03/01/25 Interval history: Patient was seen and examined at bedside today. She states that she feels well and is ready to go home. Discussed with Dr. Saenz and she mentioned that it is okay to discharge her today. Her sodium level is back to where her baseline is, today morning sodium is 128. Patient is asymptomatic. As per Dr. Saenz, she can resume apixaban tomorrow. Exam Narrative: Exam Narrative: Physical exam GENERAL: Cachectic, no acute distress. [place] drain in place. HEAD AND NECK: Atraumatic, normocephalic CARDIOVASCULAR: RRR. Normal S1, S2. RESPIRATORY: Clear to auscultation B/L. Good air entry B/L. NEUROLOGY: Alert, awake, oriented X 3. Normal speech. PSYCH: Normal mood, normal affect. Const: Vital Signs, click to edit/add: Vital Signs - 24 hr 02/28/25 11:00 02/28/25 15:00 02/28/25 15:00 Temperature 98.8 F 99.2 F Pulse Rate [Pulse Oximeter] 62 90 66 Respiratory Rate 16 20 20 Blood Pressure [Le ft Arm] 109/66 118/76 Pulse Oximetry 94 89 Oxygen Delivery Me thod Room Air Room Air 02/28/25 15:00 02/28/25 19:00 02/28/25 23:00 Temperature 98.6 F Pulse Rate [Pulse Oximeter] 72 68 Respiratory Rate 18 18 Blood Pressure [Le ft Arm] 108/66 Pulse Oximetry 89 95 Oxygen Delivery Ny thod Room Air Room Air 02/28/25 23:00 02/28/25 23:00 03/01/25 02:13 Temperature 98.3 F 98.9 F Pulse Rate [Pulse Oximeter] 68 72 Respiratory Rate 18 18 18 Blood Pressure [Le ft Arm] 113/66 127/77 Pulse Oximetry 93 93 90 Oxygen Delivery Ny thod Room Air Room Air Room Air 03/01/25 07:00 03/01/25 07:00 03/01/25 07:00 Temperature 98.6 F Pulse Rate [Pulse Oximeter] 72 72 Respiratory Rate 18 16 16 Blood Pressure [Le ft Arm] 133/74 Pulse Oximetry 93 93 Oxygen Delivery Ny thod Room Air Room Air Labs Labs: Laboratory Results - last 24 hr 02/28/25 02/28/25 02/28/25 09:36 13:00 19:11 WBC 12.10 H RBC 3.80 L Hgb 14.2 Hct 41.5 MCV 109 H MCH 37 H MCHC 34 RDW Coeff of Bro 13.6 Plt Count 325 Neut % (Auto) 86.4 H Lymph % (Auto) 8.3 L [place] % (Auto) 3.7 Eos % (Auto) 0.7 Baso % (Auto) 0.5 Neut # (Auto) 10.50 H Lymph # (Auto) 1.00 [place] # (Auto) 0.40 Eos # (Auto) 0.10 Baso # (Auto) 0.10 Abs Immat Gran (auto) 0.00 Imm/Tot Granulo (auto) 0.4 Sodium 122 L* 122 L* 122 L* Potassium 4.2 Chloride 88 L Carbon Dioxide 27 Anion Gap 7 BUN 14 Creatinine 0.5 Estimated Creat Clear 36.80 Estimated GFR 97 Glucose 126 H Calcium 9.8 Magnesium Total Bilirubin 1.1 AST 45 H ALT 27 Alkaline Phosphatase 80 Total Protein 7.1 Albumin 4.4 03/01/25 06:10 WBC 10.83 RBC 3.79 L Hgb 14.0 Hct 41.5 MCV 110 H MCH 37 H MCHC 34 RDW Coeff of Bro 13.5 Plt Count 332 Neut % (Auto) 84.1 H Lymph % (Auto) 9.1 L [place] % (Auto) 4.1 Eos % (Auto) 1.5 Baso % (Auto) 0.6 Neut # (Auto) 9.10 H Lymph # (Auto) 1.00 [place] # (Auto) 0.40 Eos # (Auto) 0.16 Baso # (Auto) 0.06 Abs Immat Gran (auto) 0.06 Imm/Tot Granulo (auto) 0.6 Sodium 128 L Potassium 4.2 Chloride 96 Carbon Dioxide 27 Anion Gap 5 L BUN 15 Creatinine 0.7 Estimated Creat Clear 36.80 Estimated GFR 90 Glucose 99 Calcium 10.1 Magnesium 1.8 Total Bilirubin AST ALT Alkaline Phosphatase Total Protein Albumin
--- NOTE | 2025-03-01 10:10 | PC.NURSE ---
Discharge: Patient was pleasant and cooperative. Alert and oriented x4. VSS, on RA, denies N/V/SOB and rated pain 2/10. Patients DEN[place] drain patent and draining. Educated patient and spouse on how to strip and empty [place] Drain. They verbalized understanding of task. Patient tolerating a reg. diet, ANTHONY bandage in place. C/D/I. Patient discharged to home today at 1000 accompanied by spouse. IV removed, tip intact. Discharge paperwork signed and patient verbalized understanding of discharge instructions. Patient also signed Belongings sheet.
== END 2025-03-01 10:00 | disposition home or self-care (01) | DRG 580 ==
LOC: OR 03-05 12:10 → MEDSURG 03-05 12:10
PROVIDERS: Student in an Organized Health Care Education/Training Program; Admitting Provider Surgery; PCP Family Medicine; Visit Provider Surgery
PROC: 0HTT0ZZ Resection of Right Breast, Open Approach (ICD-10-PCS; principal; 2025-02-27 08:30)
PROC: 0HTT0ZZ Resection of Right Breast, Open Approach (ICD-10-PCS; 2025-02-27 08:30)
DX: C50.911 Malignant neoplasm of unspecified site of right female breast (principal); E46 Unspecified protein-calorie malnutrition; E87.1 Hypo-osmolality and hyponatremia; Z68.1 Body mass index [BMI] 19.9 or less, adult; K55.1 Chronic vascular disorders of intestine; G89.18 Other acute postprocedural pain; Z17.0 Estrogen receptor positive status [ER+]; Z17.22 Progesterone receptor negative status; I11.0 Hypertensive heart disease with heart failure; I50.9 Heart failure, unspecified; R26.81 Unsteadiness on feet; D75.839 Thrombocytosis, unspecified; Z79.01 Long term (current) use of anticoagulants; I25.10 Atherosclerotic heart disease of native coronary artery without angina pectoris; D64.9 Anemia, unspecified; F41.9 Anxiety disorder, unspecified; J44.9 Chronic obstructive pulmonary disease, unspecified; I25.2 Old myocardial infarction; Z86.2 Personal history of diseases of the blood and blood-forming organs and certain disorders involving the immune mechanism; Z87.891 Personal history of nicotine dependence; Z85.828 Personal history of other malignant neoplasm of skin; E78.00 Pure hypercholesterolemia, unspecified
CPT/HCPCS: 01610; 36415; 38792; 51798; 64420; 76942; 80048; 80053; 83735; 84295; 85025; 88307; 88333; 88334; 88361; 88377; 99100; A9270; A9541; J0665; J0666; J0736; J1171; J2003; J2704; J3010; J3475; J3490; J7120; J7131

== ENCOUNTER 2025-07-05 09:11 | Outpatient (CLI) | payer OTHER, SELFPAY | END 2025-07-05 09:12 | disposition home or self-care (01) | LOC: NFLDREF 07-11 03:54 | PROVIDERS: PCP Family Medicine; Referring Provider Family Medicine; Visit Provider Family Medicine | DX: Z13.9 Encounter for screening, unspecified (principal); M81.0 Age-related osteoporosis without current pathological fracture | CPT/HCPCS: 80048; 80061; 82306; 83735; 84100 ==